=== PATIENT | female | born 1930 | race Caucasian/White ===

== ENCOUNTER 2018-06-02 15:07 | Emergency (ER) | payer MEDICARE ==
[2018-06-02 15:21] LABS: ADD MAN DIFF? NO
[2018-06-02 15:25] LABS: BASOPHIL # 0.1 10^3/ul (0.0-0.1); BASOPHILS % 0.7 % (0.0-2.0); EOSINOPHILS % 12.3 % (0.0-7.0); HEMATOCRIT 33.5 % (37.0-47.0); HEMOGLOBIN 10.4 g/dl (12.0-16.0); LYMPHOCYTES # 1.8 10^3/ul (0.8-2.9); LYMPHOCYTES % 21.7 % (15.0-51.0); MEAN CORPUSCULAR HEMOGLOBIN 27.3 pg (29.0-33.0); MEAN CORPUSCULAR VOLUME 87.9 fl (82.0-101.0); MEAN PLATELET VOLUME 9.7 fl (7.4-10.4); MONOCYTE # 0.6 10^3/ul (0.3-0.9); MONOCYTES % 6.9 % (0.0-11.0); NEUTROPHIL # 4.8 10^3/ul (1.6-7.5); NEUTROPHILS % 58.2 % (39.0-77.0); PLATELET COUNT 224 10^3/UL (140-415); RED BLOOD COUNT 3.81 10^6/ul (4.20-5.40); RED CELL DISTRIBUTION WIDTH 15.2 % (11.5-14.5)
[2018-06-02 15:25] LABS: WHITE BLOOD COUNT 8.3 10^3/ul (4.8-10.8)
[2018-06-02] MEDS: IPRATROPIUM (NEB) 0.5 MG/2.5 ML AMP NEB (15:27)
[2018-06-02] MEDS: ALBUTEROL 0.083% (NEB) 2.5 MG/3 ML AMP NEB (15:27)
[2018-06-02 15:46] LABS: ANION GAP 14 (8-16); BLOOD UREA NITROGEN 15 mg/dl (7-20); CALCIUM 9.1 mg/dl (8.4-10.2); CARBON DIOXIDE 25 mmol/L (21-31); CHLORIDE 106 mmol/L (97-110); CREATININE 0.68 mg/dl (0.44-1.00); GLUCOSE 163 mg/dl (70-220); POTASSIUM 4.4 mmol/L (3.5-5.1); SODIUM 141 mmol/L (135-144)
[2018-06-02] MEDS: METHYLPREDNISOLONE 125 MG INJ IV (15:54)
[2018-06-02 15:58] LABS: TROPONIN-I 0.013 ng/ml (0.000-0.120)
== END 2018-06-02 16:55 | disposition home or self-care (01) ==
LOC: E/R 15:07
DX: J45.901 Unspecified asthma with (acute) exacerbation (principal); R40.2142 Coma scale, eyes open, spontaneous, at arrival to emergency department; R40.2252 Coma scale, best verbal response, oriented, at arrival to emergency department; Z87.891 Personal history of nicotine dependence; Z79.82 Long term (current) use of aspirin
CPT/HCPCS: 71045; 80048; 84484; 85025; 93005; 94664; 96374; 99285-25

== ENCOUNTER 2018-07-02 19:51 | Inpatient (IN) | payer MEDICARE ==
[2018-07-02 21:04] LABS: ADD MAN DIFF? NO
[2018-07-02 21:08] LABS: WHITE BLOOD COUNT 6.5 10^3/ul (4.8-10.8)
[2018-07-02 21:08] LABS: BASOPHILS % 0.3 % (0.0-2.0); EOSINOPHILS # 0.4 10^3/ul (0.0-0.5); EOSINOPHILS % 6.2 % (0.0-7.0); HEMATOCRIT 33.2 % (37.0-47.0); HEMOGLOBIN 9.9 g/dl (12.0-16.0); LYMPHOCYTES # 1.3 10^3/ul (0.8-2.9); LYMPHOCYTES % 20.2 % (15.0-51.0); MEAN CORPUSCULAR HEMOGLOBIN 26.1 pg (29.0-33.0); MEAN CORPUSCULAR HGB CONC 29.8 g/dl (32.0-37.0); MEAN CORPUSCULAR VOLUME 87.6 fl (82.0-101.0); MEAN PLATELET VOLUME 10.2 fl (7.4-10.4); MONOCYTE # 0.8 10^3/ul (0.3-0.9); MONOCYTES % 11.6 % (0.0-11.0); NEUTROPHILS % 61.4 % (39.0-77.0); PLATELET COUNT 207 10^3/UL (140-415); RED BLOOD COUNT 3.79 10^6/ul (4.20-5.40); RED CELL DISTRIBUTION WIDTH 15.3 % (11.5-14.5)
[2018-07-02 21:23] LABS: INR 1.13; PROTIME 14.7 Sec (11.9-14.9); PT RATIO 1.1
[2018-07-02 21:24] LABS: PARTIAL THROMBOPLASTIN TIME 26.3 Sec (25.0-35.0)
[2018-07-02 21:31] LABS: LACTIC ACID 1.9 mmol/L (0.5-2.0)
[2018-07-02 21:31] LABS: ALANINE AMINOTRANSFERASE 37 IU/L (13-69); ALBUMIN 3.3 g/dl (3.3-4.9); ALBUMIN/GLOBULIN RATIO 1.22; ALKALINE PHOSPHATASE 77 IU/L (42-121); ANION GAP 10 (8-16); ASPARTATE AMINO TRANSFERASE 31 IU/L (15-46); BILIRUBIN,INDIRECT 0.1 mg/dl (0-1.1); BILIRUBIN,TOTAL 0.1 mg/dl (0.2-1.3); BLOOD UREA NITROGEN 16 mg/dl (7-20); CALCIUM 9.1 mg/dl (8.4-10.2); CARBON DIOXIDE 32 mmol/L (21-31); CHLORIDE 102 mmol/L (97-110); GLUCOSE 123 mg/dl (70-220); POTASSIUM 4.3 mmol/L (3.5-5.1); SODIUM 140 mmol/L (135-144)
[2018-07-02 21:38] LABS: B-TYPE NATRIURETIC PEPTIDE 6370 PG/ML (0-450); TROPONIN-I 0.021 ng/ml (0.000-0.120)
[2018-07-02] MEDS: SODIUM CHLORIDE 0.9% 1L BAG IV* (22:24)
[2018-07-02 22:35] LABS: LACTIC ACID 1.1 mmol/L (0.5-2.0)
[2018-07-02] MEDS: IOHEXOL 100 ML (22:54)
[2018-07-02] MEDS: SOD CHLORIDE 0.9% 100 ML (22:54)
[2018-07-02 23:46] LABS: LACTIC ACID 1.4 mmol/L (0.5-2.0)
[2018-07-03] MEDS ORDERED: ONDANSETRON 4 MG INJ IV (01:00)
[2018-07-03] MEDS ORDERED: ALBUTEROL HFA 8 GM INHALER INH (01:00)
[2018-07-03] MEDS ORDERED: DOCUSATE SODIUM 100 MG CAP PO (01:00)
[2018-07-03] MEDS ORDERED: NACL 0.9% 3 ML SYG IV (01:00)
[2018-07-03] MEDS ORDERED: NITROGLYCERIN (SL) 0.4 MG TAB SL (01:00)
[2018-07-03] MEDS ORDERED: BISACODYL (EC) 5 MG TAB PO (01:00)
[2018-07-03 01:21] LABS: CREATINE KINASE 44 IU/L (23-200)
[2018-07-03 01:34] LABS: CK INDEX 6.7; CK-MB 2.95 ng/ml (0.0-2.4); TROPONIN-I 0.023 ng/ml (0.000-0.120)
[2018-07-03] MEDS ORDERED: ALBUTEROL/IPRATROPIUM (NEB) 3 ML AMP HHN (02:30)
[2018-07-03] MEDS: FUROSEMIDE 20 MG INJ IV (02:30)
[2018-07-03 05:52] LABS: ADD MAN DIFF? NO
[2018-07-03 05:54] LABS: BASOPHILS % 0.4 % (0.0-2.0); EOSINOPHILS # 0.1 10^3/ul (0.0-0.5); EOSINOPHILS % 0.9 % (0.0-7.0); HEMATOCRIT 32.6 % (37.0-47.0); HEMOGLOBIN 9.9 g/dl (12.0-16.0); LYMPHOCYTES # 1.1 10^3/ul (0.8-2.9); MEAN CORPUSCULAR HEMOGLOBIN 26.8 pg (29.0-33.0); MEAN CORPUSCULAR HGB CONC 30.4 g/dl (32.0-37.0); MEAN CORPUSCULAR VOLUME 88.1 fl (82.0-101.0); MEAN PLATELET VOLUME 10.4 fl (7.4-10.4); MONOCYTE # 0.7 10^3/ul (0.3-0.9); MONOCYTES % 8.7 % (0.0-11.0); NEUTROPHILS % 75.5 % (39.0-77.0); PLATELET COUNT 211 10^3/UL (140-415); RED CELL DISTRIBUTION WIDTH 15.3 % (11.5-14.5)
[2018-07-03 05:54] LABS: WHITE BLOOD COUNT 7.9 10^3/ul (4.8-10.8)
[2018-07-03 06:16] LABS: INR 1.17; PROTIME 15.1 Sec (11.9-14.9); PT RATIO 1.2
[2018-07-03 06:21] LABS: CREATINE KINASE 42 IU/L (23-200)
[2018-07-03 06:34] LABS: CK INDEX 5.9; CK-MB 2.46 ng/ml (0.0-2.4); TROPONIN-I 0.031 ng/ml (0.000-0.120)
[2018-07-03] MEDS: ALBUMIN HUMAN 25% 100 ML IV ×2 (06:58→08:03)
[2018-07-03] MEDS: predniSONE 20 MG TAB PO (06:59)
[2018-07-03 07:09] LABS: HEMOGLOBIN A1C 6.7 % (0-5.9)
[2018-07-03 07:11] LABS: ALANINE AMINOTRANSFERASE 46 IU/L (13-69); ALBUMIN 3.2 g/dl (3.3-4.9); ALBUMIN/GLOBULIN RATIO 1.18; ALKALINE PHOSPHATASE 74 IU/L (42-121); ANION GAP 13 (8-16); ASPARTATE AMINO TRANSFERASE 42 IU/L (15-46); BILIRUBIN,INDIRECT 0.3 mg/dl (0-1.1); BILIRUBIN,TOTAL 0.3 mg/dl (0.2-1.3); BLOOD UREA NITROGEN 18 mg/dl (7-20); CALCIUM 8.4 mg/dl (8.4-10.2); CARBON DIOXIDE 26 mmol/L (21-31); CHLORIDE 104 mmol/L (97-110); CHOL/HDL RATIO 2.7 RATIO; CHOLESTEROL 89 mg/dl (100-200); CREATININE 0.89 mg/dl (0.44-1.00); GLUCOSE 127 mg/dl (70-220); HDL CHOLESTEROL 32 mg/dl (33-92); LDL CHOLESTEROL,CALCULATED 41 mg/dl; POTASSIUM 4.1 mmol/L (3.5-5.1); SODIUM 139 mmol/L (135-144); TOTAL PROTEIN 5.9 g/dl (6.1-8.1); TRIGLYCERIDES 80 mg/dl (0-149)
[2018-07-03] MEDS: PANTOPRAZOLE (EC) 40 MG TAB PO ×2 (07:44→18:11)
[2018-07-03] MEDS: ALBUTEROL/IPRATROPIUM (NEB) 3 ML AMP HHN ×4 (08:30→20:37)
[2018-07-03] MEDS: DONEPEZIL 5 MG TAB PO (08:51)
[2018-07-03] MEDS: ANASTROZOLE 1 MG TAB PO (08:51)
[2018-07-03] MEDS: QUETIAPINE 25 MG TAB PO ×2 (08:51→20:21)
[2018-07-03] MEDS: OXYBUTYNIN 5 MG TAB PO (08:51)
[2018-07-03] MEDS: DOCUSATE SODIUM 100 MG CAP PO ×2 (08:59→20:21)
[2018-07-03] MEDS: ASPIRIN (EC) 81 MG TAB PO (09:00)
[2018-07-03] MEDS ORDERED: DONEPEZIL 5 MG PO (09:00)
[2018-07-03] MEDS: MEMANTINE 10 MG TAB PO (09:00)
[2018-07-03] MEDS: morphine 2 MG INJ IV (10:31)
[2018-07-03] MEDS: ALPRAZOLAM 0.5 MG TAB PO (17:31)
[2018-07-03] MEDS: PAROXETINE 10 MG TAB PO (20:21)
[2018-07-03] MEDS: MONTELUKAST 10 MG TAB PO (20:21)
[2018-07-04] MEDS: ALBUTEROL/IPRATROPIUM (NEB) 3 ML AMP HHN ×6 (00:30→20:26)
[2018-07-04] MEDS: ALPRAZOLAM 0.25 MG TAB PO ×2 (01:22→18:09)
[2018-07-04] MEDS ORDERED: VANCOMYCIN IV PER PHARMACY XX (05:00)
[2018-07-04 05:35] LABS: ADD MAN DIFF? NO
[2018-07-04 05:36] LABS: WHITE BLOOD COUNT 7.1 10^3/ul (4.8-10.8)
[2018-07-04 05:36] LABS: BASOPHILS % 0.1 % (0.0-2.0); EOSINOPHILS % 0.4 % (0.0-7.0); HEMATOCRIT 30.7 % (37.0-47.0); HEMOGLOBIN 9.4 g/dl (12.0-16.0); LYMPHOCYTES # 1.5 10^3/ul (0.8-2.9); LYMPHOCYTES % 20.4 % (15.0-51.0); MEAN CORPUSCULAR HEMOGLOBIN 26.3 pg (29.0-33.0); MEAN CORPUSCULAR HGB CONC 30.6 g/dl (32.0-37.0); MEAN CORPUSCULAR VOLUME 85.8 fl (82.0-101.0); MEAN PLATELET VOLUME 10.5 fl (7.4-10.4); MONOCYTE # 0.9 10^3/ul (0.3-0.9); NEUTROPHIL # 4.7 10^3/ul (1.6-7.5); NEUTROPHILS % 66.7 % (39.0-77.0); PLATELET COUNT 206 10^3/UL (140-415); RED BLOOD COUNT 3.58 10^6/ul (4.20-5.40); RED CELL DISTRIBUTION WIDTH 15.2 % (11.5-14.5)
[2018-07-04 05:56] LABS: PHOSPHORUS 3.7 mg/dl (2.5-4.9)
[2018-07-04 05:56] LABS: MAGNESIUM 2.4 mg/dl (1.7-2.5)
[2018-07-04] MEDS: PANTOPRAZOLE (EC) 40 MG TAB PO ×2 (05:58→18:10)
[2018-07-04 06:01] LABS: PT RATIO 1.3
[2018-07-04 06:08] LABS: B-TYPE NATRIURETIC PEPTIDE 7760 PG/ML (0-450); TROPONIN-I 0.019 ng/ml (0.000-0.120)
[2018-07-04 06:37] LABS: ALBUMIN 3.6 g/dl (3.3-4.9); ALBUMIN/GLOBULIN RATIO 1.71; ALKALINE PHOSPHATASE 65 IU/L (42-121); ANION GAP 14 (8-16); ASPARTATE AMINO TRANSFERASE 46 IU/L (15-46); BILIRUBIN,INDIRECT 0.4 mg/dl (0-1.1); BILIRUBIN,TOTAL 0.4 mg/dl (0.2-1.3); BLOOD UREA NITROGEN 23 mg/dl (7-20); CARBON DIOXIDE 26 mmol/L (21-31); CHLORIDE 104 mmol/L (97-110); CREATININE 0.82 mg/dl (0.44-1.00); GLUCOSE 135 mg/dl (70-220); POTASSIUM 4.7 mmol/L (3.5-5.1); SODIUM 139 mmol/L (135-144); TOTAL PROTEIN 5.7 g/dl (6.1-8.1)
[2018-07-04] MEDS: VANCOMYCIN 1.25 GM in SOD CHLORIDE 0.9% 250 ML IVPB (06:45)
[2018-07-04 08:00] LABS: ALANINE AMINOTRANSFERASE 52 IU/L (13-69)
[2018-07-04] MEDS ORDERED: ARTIFICIAL TEARS 15 ML OPH BOTH EYES (08:00)
[2018-07-04] MEDS: OXYBUTYNIN 5 MG TAB PO (08:52)
[2018-07-04] MEDS: DOCUSATE SODIUM 100 MG CAP PO ×2 (08:52→20:59)
[2018-07-04] MEDS: ANASTROZOLE 1 MG TAB PO (08:53)
[2018-07-04] MEDS: MEMANTINE 10 MG TAB PO (08:53)
[2018-07-04] MEDS: DONEPEZIL 5 MG TAB PO (08:54)
[2018-07-04] MEDS: ASPIRIN (EC) 81 MG TAB PO (08:54)
[2018-07-04] MEDS: QUETIAPINE 25 MG TAB PO ×2 (08:54→20:59)
[2018-07-04] MEDS: predniSONE 20 MG TAB PO (08:55)
[2018-07-04 09:48] LABS: ADD UMIC YES; UR ASCORBIC ACID 40 mg/dL (NEGATIVE); UR BILIRUBIN (Dip) NEGATIVE (NEGATIVE); UR BLOOD (Dip) NEGATIVE (NEGATIVE); UR CLARITY CLEAR (CLEAR); UR COLOR YELLOW (YELLOW); UR GLUCOSE (Dip) NEGATIVE (NEGATIVE); UR KETONES (Dip) NEGATIVE (NEGATIVE); UR LEUKOCYTE ESTERASE (Dip) NEGATIVE Leu/ul (NEGATIVE); UR MUCUS FEW /HPF (NONE SEEN); UR NITRITE (Dip) NEGATIVE (NEGATIVE); UR RBC 1 /HPF (0-5); UR SPECIFIC GRAVITY (Dip) 1.055 (1.003-1.030); UR TOTAL PROTEIN (Dip) 1+ mg/dl (NEGATIVE); UR UROBILINOGEN (Dip) 1+ mg/dL (NEGATIVE); UR WBC 1 /HPF (0-5)
[2018-07-04 09:59] LABS: INR 1.29; PROTIME 16.3 Sec (11.9-14.9)
[2018-07-04] MEDS: LORAZEPAM 0.5 MG TAB PO (12:48)
[2018-07-04] MEDS: BISACODYL (EC) 5 MG TAB PO (13:26)
[2018-07-04] MEDS: POLYETHYLENE GLYCOL 17 GM PACKET PO (20:59)
[2018-07-04] MEDS: PAROXETINE 10 MG TAB PO (20:59)
[2018-07-04] MEDS: MONTELUKAST 10 MG TAB PO (20:59)
[2018-07-04] MEDS: METOPROLOL 25 MG TAB PO (21:01)
[2018-07-04] MEDS: HEPARIN 5,000 UNIT/0.5 ML VIAL SC (21:25)
[2018-07-05] MEDS: ALBUTEROL/IPRATROPIUM (NEB) 3 ML AMP HHN ×6 (01:41→21:45)
[2018-07-05 05:43] LABS: ADD MAN DIFF? NO
[2018-07-05] MEDS: PANTOPRAZOLE (EC) 40 MG TAB PO ×2 (05:45→18:45)
[2018-07-05] MEDS: VANCOMYCIN 1 GM 250 ML IVPB (05:46)
[2018-07-05 05:58] LABS: BASOPHILS % 0.2 % (0.0-2.0); EOSINOPHILS % 0.4 % (0.0-7.0); HEMOGLOBIN 9.8 g/dl (12.0-16.0); LYMPHOCYTES # 1.7 10^3/ul (0.8-2.9); LYMPHOCYTES % 18.1 % (15.0-51.0); MEAN CORPUSCULAR HEMOGLOBIN 26.2 pg (29.0-33.0); MEAN CORPUSCULAR HGB CONC 30.6 g/dl (32.0-37.0); MEAN CORPUSCULAR VOLUME 85.6 fl (82.0-101.0); MEAN PLATELET VOLUME 10.7 fl (7.4-10.4); MONOCYTES % 10.1 % (0.0-11.0); NEUTROPHIL # 6.8 10^3/ul (1.6-7.5); NEUTROPHILS % 70.7 % (39.0-77.0); NUCLEATED RED BLOOD CELLS% 0.2 /100WBC (0.0-0.0); PLATELET COUNT 217 10^3/UL (140-415); RED BLOOD COUNT 3.74 10^6/ul (4.20-5.40); RED CELL DISTRIBUTION WIDTH 15.3 % (11.5-14.5)
[2018-07-05 05:58] LABS: WHITE BLOOD COUNT 9.6 10^3/ul (4.8-10.8)
[2018-07-05 06:07] LABS: PT RATIO 1.2
[2018-07-05 06:20] LABS: INR 1.24; PROTIME 15.8 Sec (11.9-14.9)
[2018-07-05 06:49] LABS: PHOSPHORUS 3.6 mg/dl (2.5-4.9)
[2018-07-05 06:49] LABS: MAGNESIUM 2.5 mg/dl (1.7-2.5)
[2018-07-05 07:30] LABS: ALANINE AMINOTRANSFERASE 81 IU/L (13-69); ALBUMIN 3.3 g/dl (3.3-4.9); ALBUMIN/GLOBULIN RATIO 1.37; ALKALINE PHOSPHATASE 80 IU/L (42-121); ANION GAP 17 (8-16); ASPARTATE AMINO TRANSFERASE 92 IU/L (15-46); BILIRUBIN,INDIRECT 0.2 mg/dl (0-1.1); BILIRUBIN,TOTAL 0.2 mg/dl (0.2-1.3); BLOOD UREA NITROGEN 29 mg/dl (7-20); CALCIUM 8.9 mg/dl (8.4-10.2); CARBON DIOXIDE 25 mmol/L (21-31); CHLORIDE 104 mmol/L (97-110); CREATININE 0.88 mg/dl (0.44-1.00); GLUCOSE 153 mg/dl (70-220); POTASSIUM 4.5 mmol/L (3.5-5.1); SODIUM 141 mmol/L (135-144); TOTAL PROTEIN 5.7 g/dl (6.1-8.1)
[2018-07-05] MEDS: ASPIRIN (EC) 81 MG TAB PO (09:26)
[2018-07-05] MEDS: OXYBUTYNIN 5 MG TAB PO (09:27)
[2018-07-05] MEDS: MEMANTINE 10 MG TAB PO (09:27)
[2018-07-05] MEDS: DOCUSATE SODIUM 100 MG CAP PO ×2 (09:27→21:01)
[2018-07-05] MEDS: LISINOPRIL 5 MG TAB PO (09:29)
[2018-07-05] MEDS: METOPROLOL 25 MG TAB PO ×2 (09:30→21:02)
[2018-07-05] MEDS: predniSONE 20 MG TAB PO (09:30)
[2018-07-05] MEDS: QUETIAPINE 25 MG TAB PO ×2 (09:30→21:01)
[2018-07-05] MEDS: BISACODYL (EC) 5 MG TAB PO (09:30)
[2018-07-05] MEDS: DONEPEZIL 5 MG TAB PO (09:30)
[2018-07-05] MEDS: POLYETHYLENE GLYCOL 17 GM PACKET PO ×2 (09:30→21:00)
[2018-07-05] MEDS: ANASTROZOLE 1 MG TAB PO (09:31)
[2018-07-05] MEDS: HEPARIN 5,000 UNIT/0.5 ML VIAL SC ×2 (09:31→21:04)
[2018-07-05] MEDS ORDERED: morphine LIQ (10 MG/5 ML) CUP PO (15:30)
[2018-07-05] MEDS: PAROXETINE 10 MG TAB PO (21:01)
[2018-07-05] MEDS: MONTELUKAST 10 MG TAB PO (21:01)
[2018-07-06] MEDS: ALBUTEROL/IPRATROPIUM (NEB) 3 ML AMP HHN ×6 (01:11→21:12)
[2018-07-06] MEDS: ACETAMINOPHEN 325 MG TAB PO (01:29)
[2018-07-06] MEDS: ALPRAZOLAM 0.25 MG TAB PO ×2 (01:29→17:34)
[2018-07-06] MEDS: VANCOMYCIN 1 GM 250 ML IVPB (05:27)
[2018-07-06 05:43] LABS: ADD MAN DIFF? NO
[2018-07-06 05:52] LABS: BASOPHILS % 0.1 % (0.0-2.0); HEMATOCRIT 30.5 % (37.0-47.0); HEMOGLOBIN 9.4 g/dl (12.0-16.0); LYMPHOCYTES # 0.9 10^3/ul (0.8-2.9); LYMPHOCYTES % 8.8 % (15.0-51.0); MEAN CORPUSCULAR HEMOGLOBIN 26.2 pg (29.0-33.0); MEAN CORPUSCULAR HGB CONC 30.8 g/dl (32.0-37.0); MEAN PLATELET VOLUME 11.1 fl (7.4-10.4); MONOCYTE # 0.7 10^3/ul (0.3-0.9); MONOCYTES % 6.5 % (0.0-11.0); NEUTROPHIL # 8.4 10^3/ul (1.6-7.5); NEUTROPHILS % 84.1 % (39.0-77.0); NUCLEATED RED BLOOD CELLS% 0.2 /100WBC (0.0-0.0); PLATELET COUNT 213 10^3/UL (140-415); RED BLOOD COUNT 3.59 10^6/ul (4.20-5.40); RED CELL DISTRIBUTION WIDTH 15.2 % (11.5-14.5)
[2018-07-06 06:13] LABS: ANION GAP 12 (8-16); BLOOD UREA NITROGEN 32 mg/dl (7-20); CALCIUM 8.7 mg/dl (8.4-10.2); CARBON DIOXIDE 27 mmol/L (21-31); CHLORIDE 105 mmol/L (97-110); CREATININE 0.74 mg/dl (0.44-1.00); GLUCOSE 163 mg/dl (70-220); POTASSIUM 4.2 mmol/L (3.5-5.1); SODIUM 140 mmol/L (135-144)
[2018-07-06 06:17] LABS: INR 1.28; PROTIME 16.2 Sec (11.9-14.9); PT RATIO 1.3
[2018-07-06] MEDS: PANTOPRAZOLE (EC) 40 MG TAB PO ×2 (06:49→17:30)
[2018-07-06] MEDS: predniSONE 20 MG TAB PO (09:00)
[2018-07-06] MEDS: DONEPEZIL 5 MG TAB PO (09:00)
[2018-07-06] MEDS: DOCUSATE SODIUM 100 MG CAP PO ×2 (09:00→21:00)
[2018-07-06] MEDS: POLYETHYLENE GLYCOL 17 GM PACKET PO ×2 (09:00→21:00)
[2018-07-06] MEDS: OXYBUTYNIN 5 MG TAB PO (09:00)
[2018-07-06] MEDS: ASPIRIN (EC) 81 MG TAB PO (09:03)
[2018-07-06] MEDS: METOPROLOL 25 MG TAB PO ×2 (09:03→21:23)
[2018-07-06] MEDS: QUETIAPINE 25 MG TAB PO ×2 (09:03→21:19)
[2018-07-06] MEDS: LISINOPRIL 5 MG TAB PO (09:03)
[2018-07-06] MEDS: MEMANTINE 10 MG TAB PO (09:03)
[2018-07-06] MEDS: ANASTROZOLE 1 MG TAB PO (09:11)
[2018-07-06] MEDS: HEPARIN 5,000 UNIT/0.5 ML VIAL SC ×2 (09:11→21:19)
[2018-07-06] MEDS: FUROSEMIDE 40 MG INJ IV ×2 (11:41→17:31)
[2018-07-06 13:07] LABS: AADO2 Arterial 65.7 mmHg (7.0-24.0); Allen Test ACCEPTAB; Arterial Base Excess -0.5 mmol/L (-3.0-3); Arterial Blood Gas Oxygen Sat 95.1 mmHG (95.0-100.0); Arterial COHb 0 % (0.0-3.0); Arterial Fraction of Oxyhgb 94.8 % (93.0-99.0); Arterial HCO3 24.4 mmol/L (22.0-26.0); Arterial MetHb 0.3 % (0.0-1.5); Arterial Total Hemglobin 11.1 g/dl (12.0-18.0); Arterial pCO2 40.9 mmhg (35-45); MODE NASAL CANNULA; Site Right Radial
[2018-07-06] MEDS: BUDESONIDE (NEB) 0.25 MG/2 ML AMP HHN (20:00)
[2018-07-06] MEDS: PAROXETINE 10 MG TAB PO (21:19)
[2018-07-06] MEDS: MONTELUKAST 10 MG TAB PO (21:19)
[2018-07-07] MEDS: ALBUTEROL/IPRATROPIUM (NEB) 3 ML AMP HHN ×6 (00:55→20:37)
[2018-07-07 05:50] LABS: ADD MAN DIFF? NO
[2018-07-07 05:56] LABS: BASOPHILS % 0.2 % (0.0-2.0); EOSINOPHILS # 0.1 10^3/ul (0.0-0.5); EOSINOPHILS % 0.5 % (0.0-7.0); HEMATOCRIT 30.4 % (37.0-47.0); HEMOGLOBIN 9.2 g/dl (12.0-16.0); LYMPHOCYTES # 2.1 10^3/ul (0.8-2.9); LYMPHOCYTES % 18.6 % (15.0-51.0); MEAN CORPUSCULAR HEMOGLOBIN 25.8 pg (29.0-33.0); MEAN CORPUSCULAR HGB CONC 30.3 g/dl (32.0-37.0); MEAN CORPUSCULAR VOLUME 85.2 fl (82.0-101.0); MONOCYTES % 8.9 % (0.0-11.0); NEUTROPHIL # 7.9 10^3/ul (1.6-7.5); NEUTROPHILS % 71.3 % (39.0-77.0); NUCLEATED RED BLOOD CELLS # 0.1 10^3/ul (0.0-0.0); NUCLEATED RED BLOOD CELLS% 0.5 /100WBC (0.0-0.0); PLATELET COUNT 209 10^3/UL (140-415); RED BLOOD COUNT 3.57 10^6/ul (4.20-5.40); RED CELL DISTRIBUTION WIDTH 15.4 % (11.5-14.5)
[2018-07-07] MEDS: FUROSEMIDE 40 MG INJ IV ×3 (06:00→18:14)
[2018-07-07 06:28] LABS: ANION GAP 11 (8-16); BLOOD UREA NITROGEN 30 mg/dl (7-20); CALCIUM 8.9 mg/dl (8.4-10.2); CARBON DIOXIDE 29 mmol/L (21-31); CHLORIDE 104 mmol/L (97-110); CREATININE 0.81 mg/dl (0.44-1.00); GLUCOSE 105 mg/dl (70-220); POTASSIUM 4.1 mmol/L (3.5-5.1); SODIUM 140 mmol/L (135-144)
[2018-07-07] MEDS: PANTOPRAZOLE (EC) 40 MG TAB PO ×2 (06:31→18:13)
[2018-07-07 06:34] LABS: ALANINE AMINOTRANSFERASE 120 IU/L (13-69); ALBUMIN 2.8 g/dl (3.3-4.9); ALKALINE PHOSPHATASE 64 IU/L (42-121); ASPARTATE AMINO TRANSFERASE 102 IU/L (15-46); BILIRUBIN,INDIRECT 0.4 mg/dl (0-1.1); BILIRUBIN,TOTAL 0.4 mg/dl (0.2-1.3)
[2018-07-07] MEDS: BUDESONIDE (NEB) 0.25 MG/2 ML AMP HHN ×2 (08:55→20:37)
[2018-07-07] MEDS: METOPROLOL 25 MG TAB PO ×2 (09:00→21:44)
[2018-07-07] MEDS: POLYETHYLENE GLYCOL 17 GM PACKET PO ×2 (09:00→21:16)
[2018-07-07] MEDS: ANASTROZOLE 1 MG TAB PO (09:42)
[2018-07-07] MEDS: predniSONE 20 MG TAB PO (09:42)
[2018-07-07] MEDS: OXYBUTYNIN 5 MG TAB PO (09:42)
[2018-07-07] MEDS: QUETIAPINE 25 MG TAB PO ×2 (09:42→21:17)
[2018-07-07] MEDS: DOCUSATE SODIUM 100 MG CAP PO ×2 (09:44→21:17)
[2018-07-07] MEDS: MEMANTINE 10 MG TAB PO (09:44)
[2018-07-07] MEDS: ASPIRIN (EC) 81 MG TAB PO (09:44)
[2018-07-07] MEDS: DONEPEZIL 5 MG TAB PO (09:44)
[2018-07-07] MEDS: HEPARIN 5,000 UNIT/0.5 ML VIAL SC ×2 (09:45→21:17)
[2018-07-07] MEDS: LISINOPRIL 5 MG TAB PO (10:56)
[2018-07-07] MEDS: MONTELUKAST 10 MG TAB PO (21:17)
[2018-07-07] MEDS: PAROXETINE 10 MG TAB PO (21:17)
[2018-07-08] MEDS: ALBUTEROL/IPRATROPIUM (NEB) 3 ML AMP HHN ×6 (00:09→21:32)
[2018-07-08 05:38] LABS: ADD MAN DIFF? NO
[2018-07-08 05:45] LABS: WHITE BLOOD COUNT 9.4 10^3/ul (4.8-10.8)
[2018-07-08 05:45] LABS: BASOPHILS % 0.1 % (0.0-2.0); HEMATOCRIT 30.9 % (37.0-47.0); HEMOGLOBIN 9.4 g/dl (12.0-16.0); LYMPHOCYTES # 0.9 10^3/ul (0.8-2.9); LYMPHOCYTES % 9.2 % (15.0-51.0); MEAN CORPUSCULAR HEMOGLOBIN 25.9 pg (29.0-33.0); MEAN CORPUSCULAR HGB CONC 30.4 g/dl (32.0-37.0); MEAN CORPUSCULAR VOLUME 85.1 fl (82.0-101.0); MEAN PLATELET VOLUME 10.8 fl (7.4-10.4); MONOCYTE # 0.6 10^3/ul (0.3-0.9); NEUTROPHIL # 7.9 10^3/ul (1.6-7.5); NEUTROPHILS % 84.3 % (39.0-77.0); NUCLEATED RED BLOOD CELLS% 0.4 /100WBC (0.0-0.0); PLATELET COUNT 233 10^3/UL (140-415); RED BLOOD COUNT 3.63 10^6/ul (4.20-5.40); RED CELL DISTRIBUTION WIDTH 15.2 % (11.5-14.5)
[2018-07-08 06:14] LABS: ANION GAP 11 (8-16); BLOOD UREA NITROGEN 29 mg/dl (7-20); CALCIUM 8.5 mg/dl (8.4-10.2); CARBON DIOXIDE 31 mmol/L (21-31); CHLORIDE 104 mmol/L (97-110); CREATININE 0.76 mg/dl (0.44-1.00); GLUCOSE 147 mg/dl (70-220); POTASSIUM 3.8 mmol/L (3.5-5.1); SODIUM 142 mmol/L (135-144)
[2018-07-08 06:19] LABS: B-TYPE NATRIURETIC PEPTIDE 8490 PG/ML (0-450)
[2018-07-08] MEDS: BUDESONIDE (NEB) 0.25 MG/2 ML AMP HHN ×2 (08:15→21:32)
[2018-07-08] MEDS: ASPIRIN (EC) 81 MG TAB PO (08:35)
[2018-07-08] MEDS: QUETIAPINE 25 MG TAB PO ×2 (08:35→20:18)
[2018-07-08] MEDS: POLYETHYLENE GLYCOL 17 GM PACKET PO ×2 (08:36→20:17)
[2018-07-08] MEDS: METOPROLOL 25 MG TAB PO ×2 (08:36→20:19)
[2018-07-08] MEDS: DOCUSATE SODIUM 100 MG CAP PO ×2 (08:36→20:17)
[2018-07-08] MEDS: DONEPEZIL 5 MG TAB PO (08:36)
[2018-07-08] MEDS: OXYBUTYNIN 5 MG TAB PO (08:36)
[2018-07-08] MEDS: MEMANTINE 10 MG TAB PO (08:36)
[2018-07-08] MEDS: LISINOPRIL 5 MG TAB PO (08:36)
[2018-07-08] MEDS: PANTOPRAZOLE (EC) 40 MG TAB PO ×2 (08:36→17:17)
[2018-07-08] MEDS: ANASTROZOLE 1 MG TAB PO (08:37)
[2018-07-08] MEDS: HEPARIN 5,000 UNIT/0.5 ML VIAL SC ×2 (08:38→20:20)
[2018-07-08] MEDS ORDERED: FUROSEMIDE 40 MG INJ IV (13:00)
[2018-07-08] MEDS: FUROSEMIDE 40 MG TAB PO ×2 (13:28→20:18)
[2018-07-08] MEDS: LORAZEPAM 0.5 MG TAB PO (16:20)
[2018-07-08] MEDS: PAROXETINE 10 MG TAB PO (20:17)
[2018-07-08] MEDS: MONTELUKAST 10 MG TAB PO (20:18)
[2018-07-09] MEDS: ALBUTEROL/IPRATROPIUM (NEB) 3 ML AMP HHN ×6 (01:51→21:16)
[2018-07-09 05:12] LABS: ADD MAN DIFF? NO
[2018-07-09 05:16] LABS: WHITE BLOOD COUNT 8.2 10^3/ul (4.8-10.8)
[2018-07-09 05:16] LABS: BASOPHILS % 0.2 % (0.0-2.0); EOSINOPHILS # 0.4 10^3/ul (0.0-0.5); HEMATOCRIT 30.8 % (37.0-47.0); HEMOGLOBIN 9.4 g/dl (12.0-16.0); LYMPHOCYTES # 2.1 10^3/ul (0.8-2.9); LYMPHOCYTES % 25.1 % (15.0-51.0); MEAN CORPUSCULAR HEMOGLOBIN 25.8 pg (29.0-33.0); MEAN CORPUSCULAR HGB CONC 30.5 g/dl (32.0-37.0); MEAN CORPUSCULAR VOLUME 84.6 fl (82.0-101.0); MEAN PLATELET VOLUME 10.4 fl (7.4-10.4); MONOCYTE # 0.6 10^3/ul (0.3-0.9); MONOCYTES % 7.7 % (0.0-11.0); NEUTROPHIL # 5.1 10^3/ul (1.6-7.5); NEUTROPHILS % 61.4 % (39.0-77.0); NUCLEATED RED BLOOD CELLS% 0.2 /100WBC (0.0-0.0); PLATELET COUNT 249 10^3/UL (140-415); RED BLOOD COUNT 3.64 10^6/ul (4.20-5.40); RED CELL DISTRIBUTION WIDTH 15.1 % (11.5-14.5)
[2018-07-09 05:57] LABS: ANION GAP 10 (8-16); BLOOD UREA NITROGEN 24 mg/dl (7-20); CALCIUM 8.5 mg/dl (8.4-10.2); CARBON DIOXIDE 37 mmol/L (21-31); CHLORIDE 98 mmol/L (97-110); CREATININE 0.72 mg/dl (0.44-1.00); GLUCOSE 78 mg/dl (70-220); POTASSIUM 3.1 mmol/L (3.5-5.1); SODIUM 142 mmol/L (135-144)
[2018-07-09] MEDS: PANTOPRAZOLE (EC) 40 MG TAB PO ×2 (06:30→17:39)
[2018-07-09] MEDS: POTASSIUM CHLORIDE (SR) 20 MEQ TAB PO ×2 (06:53→09:07)
[2018-07-09] MEDS: BUDESONIDE (NEB) 0.25 MG/2 ML AMP HHN ×2 (08:18→21:16)
[2018-07-09] MEDS: DOCUSATE SODIUM 100 MG CAP PO ×2 (08:46→20:32)
[2018-07-09] MEDS: FUROSEMIDE 40 MG TAB PO ×3 (08:49→20:32)
[2018-07-09] MEDS: MEMANTINE 10 MG TAB PO (08:50)
[2018-07-09] MEDS: DONEPEZIL 5 MG TAB PO (08:50)
[2018-07-09] MEDS: OXYBUTYNIN 5 MG TAB PO (08:50)
[2018-07-09] MEDS: ASPIRIN (EC) 81 MG TAB PO (08:50)
[2018-07-09] MEDS: QUETIAPINE 25 MG TAB PO ×2 (08:50→20:32)
[2018-07-09] MEDS: HEPARIN 5,000 UNIT/0.5 ML VIAL SC ×2 (08:51→20:36)
[2018-07-09] MEDS: LISINOPRIL 5 MG TAB PO (08:51)
[2018-07-09] MEDS ORDERED: POTASSIUM CHLORIDE 20 MEQ POWDER FOR ORAL SOLN PO (09:00)
[2018-07-09] MEDS: METOPROLOL 25 MG TAB PO ×2 (09:05→20:37)
[2018-07-09] MEDS: POLYETHYLENE GLYCOL 17 GM PACKET PO ×2 (09:06→20:33)
[2018-07-09] MEDS: ANASTROZOLE 1 MG TAB PO (15:52)
[2018-07-09] MEDS: PAROXETINE 10 MG TAB PO (20:32)
[2018-07-09] MEDS: MONTELUKAST 10 MG TAB PO (20:32)
[2018-07-10] MEDS: ALBUTEROL/IPRATROPIUM (NEB) 3 ML AMP HHN ×4 (01:24→13:00)
[2018-07-10 05:14] LABS: ADD MAN DIFF? NO
[2018-07-10 05:17] LABS: BASOPHILS % 0.3 % (0.0-2.0); EOSINOPHILS # 0.5 10^3/ul (0.0-0.5); EOSINOPHILS % 5.3 % (0.0-7.0); HEMATOCRIT 33.8 % (37.0-47.0); HEMOGLOBIN 10.5 g/dl (12.0-16.0); LYMPHOCYTES # 1.9 10^3/ul (0.8-2.9); LYMPHOCYTES % 18.9 % (15.0-51.0); MEAN CORPUSCULAR HEMOGLOBIN 25.7 pg (29.0-33.0); MEAN CORPUSCULAR HGB CONC 31.1 g/dl (32.0-37.0); MEAN CORPUSCULAR VOLUME 82.6 fl (82.0-101.0); MEAN PLATELET VOLUME 10.6 fl (7.4-10.4); MONOCYTE # 0.9 10^3/ul (0.3-0.9); MONOCYTES % 8.8 % (0.0-11.0); NEUTROPHIL # 6.5 10^3/ul (1.6-7.5); NEUTROPHILS % 66.2 % (39.0-77.0); NUCLEATED RED BLOOD CELLS% 0.2 /100WBC (0.0-0.0); PLATELET COUNT 287 10^3/UL (140-415); RED BLOOD COUNT 4.09 10^6/ul (4.20-5.40); RED CELL DISTRIBUTION WIDTH 15.3 % (11.5-14.5)
[2018-07-10 05:17] LABS: WHITE BLOOD COUNT 9.9 10^3/ul (4.8-10.8)
[2018-07-10 05:49] LABS: ANION GAP 9 (8-16); BLOOD UREA NITROGEN 20 mg/dl (7-20); CARBON DIOXIDE 38 mmol/L (21-31); CHLORIDE 96 mmol/L (97-110); CREATININE 0.66 mg/dl (0.44-1.00); GLUCOSE 92 mg/dl (70-220); POTASSIUM 3.4 mmol/L (3.5-5.1); SODIUM 140 mmol/L (135-144)
[2018-07-10] MEDS: FUROSEMIDE 40 MG TAB PO ×2 (08:10→14:30)
[2018-07-10] MEDS: QUETIAPINE 25 MG TAB PO (08:10)
[2018-07-10] MEDS: ASPIRIN (EC) 81 MG TAB PO (08:10)
[2018-07-10] MEDS: MEMANTINE 10 MG TAB PO (08:10)
[2018-07-10] MEDS: PANTOPRAZOLE (EC) 40 MG TAB PO (08:11)
[2018-07-10] MEDS: DONEPEZIL 5 MG TAB PO (08:11)
[2018-07-10] MEDS: DOCUSATE SODIUM 100 MG CAP PO (08:11)
[2018-07-10] MEDS: LISINOPRIL 5 MG TAB PO (08:11)
[2018-07-10] MEDS: METOPROLOL 25 MG TAB PO (08:12)
[2018-07-10] MEDS: ANASTROZOLE 1 MG TAB PO (08:13)
[2018-07-10] MEDS: HEPARIN 5,000 UNIT/0.5 ML VIAL SC (08:14)
[2018-07-10] MEDS: OXYBUTYNIN 5 MG TAB PO (08:15)
[2018-07-10] MEDS: BUDESONIDE (NEB) 0.25 MG/2 ML AMP HHN (08:21)
[2018-07-10] MEDS: POLYETHYLENE GLYCOL 17 GM PACKET PO (09:00)
[2018-07-10] MEDS: POTASSIUM CHLORIDE (SR) 20 MEQ TAB PO (11:23)
== END 2018-07-10 16:35 | DRG 190 ==
LOC: PP2 07-06 20:43 → 6WM 07-03 00:19 → E/R 19:51
DX: J44.1 Chronic obstructive pulmonary disease with (acute) exacerbation (principal); J96.01 Acute respiratory failure with hypoxia; I50.23 Acute on chronic systolic (congestive) heart failure; C34.12 Malignant neoplasm of upper lobe, left bronchus or lung; I42.9 Cardiomyopathy, unspecified; I11.0 Hypertensive heart disease with heart failure; R07.89 Other chest pain; F03.90 Unspecified dementia, unspecified severity, without behavioral disturbance, psychotic disturbance, mood disturbance, and anxiety; D64.9 Anemia, unspecified; C50.919 Malignant neoplasm of unspecified site of unspecified female breast; E11.9 Type 2 diabetes mellitus without complications; I95.9 Hypotension, unspecified; K59.00 Constipation, unspecified; R33.9 Retention of urine, unspecified; R13.10 Dysphagia, unspecified; J45.909 Unspecified asthma, uncomplicated; I34.0 Nonrheumatic mitral (valve) insufficiency; R41.3 Other amnesia; Z86.73 Personal history of transient ischemic attack (TIA), and cerebral infarction without residual deficits
CPT/HCPCS: 36415; 36600; 71045; 71275; 74018; 76705; 80048; 80053; 80061; 80076; 81001; 82550; 82553; 82803; 83036; 83605; 83735; 83880; 84100; 84443; 84484; 85025; 85610; 85730; 87040; 93005; 93306; 94640; 94664; 97116; 97163; 97530; 99285-25

== ENCOUNTER 2018-10-29 16:38 | Inpatient (IN) | payer MEDICARE ==
[2018-10-29 17:42] LABS: ADD MAN DIFF? NO
[2018-10-29] MEDS: SODIUM CHLORIDE 0.9% 1L BAG IV* (17:42)
[2018-10-29 17:46] LABS: WHITE BLOOD COUNT 11.8 10^3/ul (4.8-10.8)
[2018-10-29 17:46] LABS: BASOPHILS % 0.3 % (0.0-2.0); EOSINOPHILS % 0.2 % (0.0-7.0); HEMATOCRIT 33.7 % (37.0-47.0); HEMOGLOBIN 10.9 g/dl (12.0-16.0); LYMPHOCYTES # 1.3 10^3/ul (0.8-2.9); LYMPHOCYTES % 11.1 % (15.0-51.0); MEAN CORPUSCULAR HGB CONC 32.3 g/dl (32.0-37.0); MEAN CORPUSCULAR VOLUME 83.4 fl (82.0-101.0); MEAN PLATELET VOLUME 10.3 fl (7.4-10.4); MONOCYTE # 1.1 10^3/ul (0.3-0.9); NEUTROPHIL # 9.3 10^3/ul (1.6-7.5); NEUTROPHILS % 78.5 % (39.0-77.0); PLATELET COUNT 319 10^3/UL (140-415); RED BLOOD COUNT 4.04 10^6/ul (4.20-5.40); RED CELL DISTRIBUTION WIDTH 15.7 % (11.5-14.5)
[2018-10-29 18:04] LABS: PROTIME 13.3 Sec (11.9-14.9)
[2018-10-29 18:05] LABS: ALBUMIN 3.5 g/dl (3.3-4.9); ALBUMIN/GLOBULIN RATIO 0.89; ALKALINE PHOSPHATASE 136 IU/L (42-121); AMYLASE 61 U/L (11-123); ANION GAP 7 (5-13); ASPARTATE AMINO TRANSFERASE 37 IU/L (15-46); BILIRUBIN,INDIRECT 0.3 mg/dl (0-1.1); BILIRUBIN,TOTAL 0.3 mg/dl (0.2-1.3); BLOOD UREA NITROGEN 27 mg/dl (7-20); CALCIUM 8.9 mg/dl (8.4-10.2); CARBON DIOXIDE 32 mmol/L (21-31); CHLORIDE 92 mmol/L (97-110); CREATININE 0.56 mg/dl (0.44-1.00); GLUCOSE 129 mg/dl (70-220); LIPASE 82 U/L (23-300); PARTIAL THROMBOPLASTIN TIME 35.3 Sec (23.0-35.0); POTASSIUM 3.6 mmol/L (3.5-5.1); SODIUM 131 mmol/L (135-144); TOTAL PROTEIN 7.4 g/dl (6.1-8.1)
[2018-10-29 18:15] LABS: ALANINE AMINOTRANSFERASE < 6 IU/L (13-69)
[2018-10-29 18:17] LABS: B-TYPE NATRIURETIC PEPTIDE 2510 PG/ML (0-450); TROPONIN-I < 0.012 ng/ml (0.000-0.120)
[2018-10-29] MEDS: SOD CHLORIDE 0.9% 1,000 ML IV ×2 (18:27→21:54)
[2018-10-29 19:13] LABS: URINE BLOOD (Dip) POC 2+ (NEGATIVE); URINE GLUCOSE (Dip) POC Negative (NEGATIVE); URINE KETONES (Dip) POC Negative (NEGATIVE); URINE LEUKOCYTE EST (Dip) POC 3+ (NEGATIVE); URINE NITRITE (Dip) POC Positive (NEGATIVE); URINE TOTAL PROTEIN POC 1+ (NEGATIVE)
[2018-10-29] MEDS: morphine 2 MG INJ IV (19:13)
[2018-10-29] MEDS: ONDANSETRON 4 MG INJ IV (19:13)
[2018-10-29] MEDS: ALBUTEROL 0.083% (NEB) 2.5 MG/3 ML AMP NEB (19:38)
[2018-10-29] MEDS: IPRATROPIUM (NEB) 0.5 MG/2.5 ML AMP NEB (19:38)
[2018-10-29] MEDS: ACETAMINOPHEN 500 MG TAB PO (19:42)
[2018-10-29] MEDS: CEFTRIAXONE 1 GM/50 ML (PMX) 50 ML IVPB (19:43)
[2018-10-29] MEDS ORDERED: ACETAMINOPHEN 325 MG TAB PO (20:00)
[2018-10-29] MEDS ORDERED: NACL 0.9% 3 ML SYG IV (20:00)
[2018-10-29] MEDS ORDERED: ONDANSETRON 4 MG INJ IV (20:00)
[2018-10-29] MEDS ORDERED: NITROGLYCERIN (SL) 0.4 MG TAB SL (20:00)
[2018-10-29] MEDS: QUETIAPINE 25 MG TAB PO (22:24)
[2018-10-29] MEDS: PAROXETINE 20 MG TAB PO (22:24)
[2018-10-29] MEDS: DOCUSATE SODIUM 100 MG CAP PO (22:24)
[2018-10-29] MEDS: MONTELUKAST 10 MG TAB PO (22:24)
[2018-10-29 23:47] LABS: LACTIC ACID 1.4 mmol/L (0.5-2.0)
[2018-10-30 01:59] LABS: ADD UMIC YES; UR ASCORBIC ACID 20 mg/dL (NEGATIVE); UR BILIRUBIN (Dip) NEGATIVE (NEGATIVE); UR BLOOD (Dip) 1+ mg/dL (NEGATIVE); UR CLARITY SLIGHTLY CLOUDY (CLEAR); UR COLOR YELLOW (YELLOW); UR GLUCOSE (Dip) NEGATIVE (NEGATIVE); UR KETONES (Dip) NEGATIVE (NEGATIVE); UR LEUKOCYTE ESTERASE (Dip) TRACE Leu/ul (NEGATIVE); UR MUCUS FEW /HPF (NONE SEEN); UR NITRITE (Dip) POSITIVE (NEGATIVE); UR RBC 1 /HPF (0-5); UR SPECIFIC GRAVITY (Dip) 1.013 (1.003-1.030); UR SQUAMOUS EPITHELIAL CELL FEW /HPF (FEW); UR TOTAL PROTEIN (Dip) NEGATIVE (NEGATIVE); UR UROBILINOGEN (Dip) NEGATIVE (NEGATIVE); UR WBC 10 /HPF (0-5)
[2018-10-30 06:14] LABS: ADD MAN DIFF? NO
[2018-10-30 06:38] LABS: BASOPHILS % 0.3 % (0.0-2.0); EOSINOPHILS # 0.1 10^3/ul (0.0-0.5); EOSINOPHILS % 0.5 % (0.0-7.0); HEMATOCRIT 32.1 % (37.0-47.0); HEMOGLOBIN 10.1 g/dl (12.0-16.0); LYMPHOCYTES % 10.4 % (15.0-51.0); MEAN CORPUSCULAR HEMOGLOBIN 26.6 pg (29.0-33.0); MEAN CORPUSCULAR HGB CONC 31.5 g/dl (32.0-37.0); MEAN CORPUSCULAR VOLUME 84.7 fl (82.0-101.0); MEAN PLATELET VOLUME 10.3 fl (7.4-10.4); MONOCYTE # 1.1 10^3/ul (0.3-0.9); MONOCYTES % 11.5 % (0.0-11.0); NEUTROPHIL # 7.4 10^3/ul (1.6-7.5); NEUTROPHILS % 76.5 % (39.0-77.0); PLATELET COUNT 272 10^3/UL (140-415); RED BLOOD COUNT 3.79 10^6/ul (4.20-5.40); RED CELL DISTRIBUTION WIDTH 15.9 % (11.5-14.5)
[2018-10-30 06:38] LABS: WHITE BLOOD COUNT 9.7 10^3/ul (4.8-10.8)
[2018-10-30 07:06] LABS: ALANINE AMINOTRANSFERASE 9 IU/L (13-69); ALBUMIN/GLOBULIN RATIO 0.83; ALKALINE PHOSPHATASE 119 IU/L (42-121); ANION GAP 9 (5-13); ASPARTATE AMINO TRANSFERASE 21 IU/L (15-46); BILIRUBIN,INDIRECT 0.1 mg/dl (0-1.1); BILIRUBIN,TOTAL 0.1 mg/dl (0.2-1.3); BLOOD UREA NITROGEN 16 mg/dl (7-20); CALCIUM 8.3 mg/dl (8.4-10.2); CARBON DIOXIDE 31 mmol/L (21-31); CHLORIDE 96 mmol/L (97-110); CREATININE 0.51 mg/dl (0.44-1.00); GLUCOSE 112 mg/dl (70-220); MAGNESIUM 2.1 mg/dl (1.7-2.5); PHOSPHORUS 2.7 mg/dl (2.5-4.9); POTASSIUM 3.1 mmol/L (3.5-5.1); SODIUM 136 mmol/L (135-144); TOTAL PROTEIN 6.6 g/dl (6.1-8.1)
[2018-10-30] MEDS: QUETIAPINE 25 MG TAB PO ×2 (08:27→20:53)
[2018-10-30] MEDS: MEMANTINE 10 MG TAB PO (08:27)
[2018-10-30] MEDS: PANTOPRAZOLE (EC) 40 MG TAB PO ×2 (08:27→17:21)
[2018-10-30] MEDS: DOCUSATE SODIUM 100 MG CAP PO ×2 (08:27→21:00)
[2018-10-30] MEDS: ASPIRIN (EC) 81 MG TAB PO (08:27)
[2018-10-30] MEDS: DONEPEZIL 5 MG TAB PO (08:27)
[2018-10-30] MEDS: FUROSEMIDE 40 MG TAB PO (08:28)
[2018-10-30] MEDS: LISINOPRIL 5 MG TAB PO (08:28)
[2018-10-30] MEDS: OXYBUTYNIN 5 MG TAB PO (09:47)
[2018-10-30] MEDS: PAROXETINE 20 MG TAB PO ×2 (09:47→20:53)
[2018-10-30] MEDS: ANASTROZOLE 1 MG TAB PO (11:17)
[2018-10-30] MEDS: SOD CHLORIDE 0.9% 1,000 ML IV ×2 (12:08→14:25)
[2018-10-30] MEDS: ACETAMINOPHEN 325 MG TAB PO ×2 (15:17→23:06)
[2018-10-30] MEDS: FOSFOMYCIN 3 GM PACKET PO (17:21)
[2018-10-30] MEDS: CEFTRIAXONE 1 GM/50 ML (PMX) 50 ML IVPB (20:51)
[2018-10-30] MEDS: MONTELUKAST 10 MG TAB PO (20:53)
[2018-10-30] MEDS: BALSAM PERU/CASTOR OIL 60 GM TUBE TOP (20:53)
[2018-10-30] MEDS: PERMETHRIN 5% 60 GM CR TOP (20:53)
[2018-10-31] MEDS: ALPRAZOLAM 0.25 MG TAB PO (01:00)
[2018-10-31] MEDS: PANTOPRAZOLE (EC) 40 MG TAB PO ×2 (06:36→16:59)
[2018-10-31] MEDS: ACETAMINOPHEN 325 MG TAB PO (08:54)
[2018-10-31] MEDS: LISINOPRIL 5 MG TAB PO ×2 (09:00→16:59)
[2018-10-31] MEDS: PAROXETINE 20 MG TAB PO ×2 (09:20→21:35)
[2018-10-31] MEDS: MEMANTINE 10 MG TAB PO (09:20)
[2018-10-31] MEDS: ASPIRIN (EC) 81 MG TAB PO (09:20)
[2018-10-31] MEDS: DOCUSATE SODIUM 100 MG CAP PO ×2 (09:20→21:35)
[2018-10-31] MEDS: FUROSEMIDE 40 MG TAB PO (09:20)
[2018-10-31] MEDS: DONEPEZIL 5 MG TAB PO (09:21)
[2018-10-31] MEDS: QUETIAPINE 25 MG TAB PO ×2 (09:21→21:35)
[2018-10-31] MEDS: OXYBUTYNIN 5 MG TAB PO (09:21)
[2018-10-31] MEDS: BALSAM PERU/CASTOR OIL 60 GM TUBE TOP ×2 (09:22→21:35)
[2018-10-31] MEDS: ANASTROZOLE 1 MG TAB PO (09:25)
[2018-10-31] MEDS: POTASSIUM CHLORIDE (SR) 20 MEQ TAB PO ×2 (14:30→21:45)
[2018-10-31] MEDS: CEFTRIAXONE 1 GM/50 ML (PMX) 50 ML IVPB (21:34)
[2018-10-31] MEDS: MONTELUKAST 10 MG TAB PO (21:35)
[2018-11-01 06:12] LABS: ADD MAN DIFF? NO
[2018-11-01 06:15] LABS: WHITE BLOOD COUNT 11.3 10^3/ul (4.8-10.8)
[2018-11-01 06:15] LABS: BASOPHIL # 0.1 10^3/ul (0.0-0.1); BASOPHILS % 0.4 % (0.0-2.0); EOSINOPHILS # 0.1 10^3/ul (0.0-0.5); HEMATOCRIT 29.8 % (37.0-47.0); HEMOGLOBIN 9.7 g/dl (12.0-16.0); LYMPHOCYTES # 1.4 10^3/ul (0.8-2.9); MEAN CORPUSCULAR HEMOGLOBIN 27.1 pg (29.0-33.0); MEAN CORPUSCULAR HGB CONC 32.6 g/dl (32.0-37.0); MEAN CORPUSCULAR VOLUME 83.2 fl (82.0-101.0); MEAN PLATELET VOLUME 9.3 fl (7.4-10.4); MONOCYTES % 9.1 % (0.0-11.0); NEUTROPHIL # 8.4 10^3/ul (1.6-7.5); NEUTROPHILS % 74.4 % (39.0-77.0); PLATELET COUNT 329 10^3/UL (140-415); RED BLOOD COUNT 3.58 10^6/ul (4.20-5.40); RED CELL DISTRIBUTION WIDTH 15.5 % (11.5-14.5)
[2018-11-01] MEDS: LEVOFLOXACIN 500 MG TAB PO (06:18)
[2018-11-01] MEDS: PANTOPRAZOLE (EC) 40 MG TAB PO ×2 (06:18→17:05)
[2018-11-01 06:47] LABS: ANION GAP 4 (5-13); BLOOD UREA NITROGEN 8 mg/dl (7-20); CALCIUM 8.3 mg/dl (8.4-10.2); CARBON DIOXIDE 32 mmol/L (21-31); CHLORIDE 96 mmol/L (97-110); CREATININE 0.46 mg/dl (0.44-1.00); GLUCOSE 105 mg/dl (70-220); POTASSIUM 3.8 mmol/L (3.5-5.1); SODIUM 132 mmol/L (135-144)
[2018-11-01 06:53] LABS: MAGNESIUM 1.8 mg/dl (1.7-2.5)
[2018-11-01] MEDS: ANASTROZOLE 1 MG TAB PO (08:34)
[2018-11-01] MEDS: DOCUSATE SODIUM 100 MG CAP PO ×2 (08:35→20:48)
[2018-11-01] MEDS: ASPIRIN (EC) 81 MG TAB PO (08:36)
[2018-11-01] MEDS: PAROXETINE 20 MG TAB PO ×2 (08:36→20:48)
[2018-11-01] MEDS: OXYBUTYNIN 5 MG TAB PO (08:37)
[2018-11-01] MEDS: DONEPEZIL 5 MG TAB PO (08:37)
[2018-11-01] MEDS: QUETIAPINE 25 MG TAB PO ×2 (08:37→20:47)
[2018-11-01] MEDS: MEMANTINE 10 MG TAB PO (08:38)
[2018-11-01] MEDS: FUROSEMIDE 40 MG TAB PO (08:39)
[2018-11-01] MEDS: BALSAM PERU/CASTOR OIL 60 GM TUBE TOP ×2 (08:40→20:48)
[2018-11-01] MEDS: LISINOPRIL 5 MG TAB PO (08:51)
[2018-11-01] MEDS: CEFTRIAXONE 1 GM/50 ML (PMX) 50 ML IVPB (20:47)
[2018-11-01] MEDS: MEGESTROL (40 MG/ML) 10ML CUP PO (20:47)
[2018-11-01] MEDS: MONTELUKAST 10 MG TAB PO (20:48)
[2018-11-01] MEDS: ACETAMINOPHEN 325 MG TAB PO (20:49)
[2018-11-01] MEDS: HEPARIN 5,000 UNIT/1 ML VIAL SC (21:08)
[2018-11-02 06:15] LABS: ADD MAN DIFF? NO
[2018-11-02] MEDS: LEVOFLOXACIN 500 MG TAB PO (06:26)
[2018-11-02] MEDS: PANTOPRAZOLE (EC) 40 MG TAB PO ×2 (06:26→17:55)
[2018-11-02] MEDS: HEPARIN 5,000 UNIT/1 ML VIAL SC ×3 (06:28→21:39)
[2018-11-02 06:35] LABS: BASOPHILS % 0.3 % (0.0-2.0); EOSINOPHILS # 0.2 10^3/ul (0.0-0.5); EOSINOPHILS % 1.9 % (0.0-7.0); HEMATOCRIT 30.3 % (37.0-47.0); LYMPHOCYTES # 1.4 10^3/ul (0.8-2.9); MEAN CORPUSCULAR HEMOGLOBIN 27.2 pg (29.0-33.0); MEAN CORPUSCULAR VOLUME 82.3 fl (82.0-101.0); MEAN PLATELET VOLUME 9.3 fl (7.4-10.4); MONOCYTE # 0.9 10^3/ul (0.3-0.9); MONOCYTES % 8.1 % (0.0-11.0); NEUTROPHIL # 8.5 10^3/ul (1.6-7.5); NEUTROPHILS % 75.5 % (39.0-77.0); PLATELET COUNT 388 10^3/UL (140-415); RED BLOOD COUNT 3.68 10^6/ul (4.20-5.40); RED CELL DISTRIBUTION WIDTH 15.5 % (11.5-14.5)
[2018-11-02 06:35] LABS: WHITE BLOOD COUNT 11.3 10^3/ul (4.8-10.8)
[2018-11-02 06:46] LABS: HEMOGLOBIN A1C 5.9 % (0-5.9)
[2018-11-02 07:00] LABS: PHOSPHORUS 3.4 mg/dl (2.5-4.9)
[2018-11-02 07:00] LABS: MAGNESIUM 1.9 mg/dl (1.7-2.5)
[2018-11-02 07:03] LABS: ANION GAP 5 (5-13); BLOOD UREA NITROGEN 9 mg/dl (7-20); CALCIUM 8.6 mg/dl (8.4-10.2); CARBON DIOXIDE 36 mmol/L (21-31); CHLORIDE 93 mmol/L (97-110); CREATININE 0.46 mg/dl (0.44-1.00); GLUCOSE 121 mg/dl (70-220); POTASSIUM 3.7 mmol/L (3.5-5.1); SODIUM 134 mmol/L (135-144)
[2018-11-02] MEDS: OXYBUTYNIN 5 MG TAB PO (09:14)
[2018-11-02] MEDS: MEMANTINE 10 MG TAB PO (09:14)
[2018-11-02] MEDS: PAROXETINE 20 MG TAB PO ×2 (09:14→21:36)
[2018-11-02] MEDS: QUETIAPINE 25 MG TAB PO ×2 (09:14→21:36)
[2018-11-02] MEDS: DONEPEZIL 5 MG TAB PO (09:14)
[2018-11-02] MEDS: DOCUSATE SODIUM 100 MG CAP PO ×2 (09:14→21:00)
[2018-11-02] MEDS: MEGESTROL (40 MG/ML) 10ML CUP PO ×2 (09:14→21:36)
[2018-11-02] MEDS: ASPIRIN (EC) 81 MG TAB PO (09:15)
[2018-11-02] MEDS: ANASTROZOLE 1 MG TAB PO (09:15)
[2018-11-02] MEDS: FUROSEMIDE 40 MG TAB PO (09:15)
[2018-11-02] MEDS: LISINOPRIL 5 MG TAB PO (09:16)
[2018-11-02] MEDS: BALSAM PERU/CASTOR OIL 60 GM TUBE TOP ×2 (09:19→21:37)
[2018-11-02] MEDS: ACETAMINOPHEN 325 MG TAB PO (11:14)
[2018-11-02] MEDS: MONTELUKAST 10 MG TAB PO (21:37)
[2018-11-03] MEDS: LEVOFLOXACIN 500 MG TAB PO (06:40)
[2018-11-03] MEDS: PANTOPRAZOLE (EC) 40 MG TAB PO ×2 (06:41→17:54)
[2018-11-03] MEDS: HEPARIN 5,000 UNIT/1 ML VIAL SC ×3 (06:43→20:54)
[2018-11-03] MEDS: MEMANTINE 10 MG TAB PO (08:04)
[2018-11-03] MEDS: PAROXETINE 20 MG TAB PO ×2 (08:04→20:53)
[2018-11-03] MEDS: FUROSEMIDE 40 MG TAB PO (08:04)
[2018-11-03] MEDS: MEGESTROL (40 MG/ML) 10ML CUP PO ×2 (08:04→20:54)
[2018-11-03] MEDS: DOCUSATE SODIUM 100 MG CAP PO ×2 (08:04→20:53)
[2018-11-03] MEDS: ASPIRIN (EC) 81 MG TAB PO (08:04)
[2018-11-03] MEDS: LISINOPRIL 5 MG TAB PO (08:05)
[2018-11-03] MEDS: OXYBUTYNIN 5 MG TAB PO (08:05)
[2018-11-03] MEDS: QUETIAPINE 25 MG TAB PO ×2 (08:05→20:53)
[2018-11-03] MEDS: ANASTROZOLE 1 MG TAB PO (08:06)
[2018-11-03] MEDS: DONEPEZIL 5 MG TAB PO (08:06)
[2018-11-03] MEDS: BALSAM PERU/CASTOR OIL 60 GM TUBE TOP ×2 (08:36→20:55)
[2018-11-03] MEDS: MONTELUKAST 10 MG TAB PO (20:54)
[2018-11-04] MEDS: HEPARIN 5,000 UNIT/1 ML VIAL SC ×3 (06:04→21:57)
[2018-11-04] MEDS: LEVOFLOXACIN 500 MG TAB PO (06:04)
[2018-11-04] MEDS: PANTOPRAZOLE (EC) 40 MG TAB PO ×2 (06:04→18:38)
[2018-11-04] MEDS: MEGESTROL (40 MG/ML) 10ML CUP PO ×2 (08:55→21:56)
[2018-11-04] MEDS: ASPIRIN (EC) 81 MG TAB PO (08:55)
[2018-11-04] MEDS: ANASTROZOLE 1 MG TAB PO (08:55)
[2018-11-04] MEDS: FUROSEMIDE 40 MG TAB PO (08:55)
[2018-11-04] MEDS: QUETIAPINE 25 MG TAB PO ×2 (08:56→21:56)
[2018-11-04] MEDS: LISINOPRIL 5 MG TAB PO (08:56)
[2018-11-04] MEDS: DONEPEZIL 5 MG TAB PO (08:56)
[2018-11-04] MEDS: PAROXETINE 20 MG TAB PO ×2 (08:56→21:56)
[2018-11-04] MEDS: MEMANTINE 10 MG TAB PO (08:56)
[2018-11-04] MEDS: DOCUSATE SODIUM 100 MG CAP PO ×2 (08:56→21:56)
[2018-11-04] MEDS: OXYBUTYNIN 5 MG TAB PO (08:57)
[2018-11-04] MEDS: BALSAM PERU/CASTOR OIL 60 GM TUBE TOP ×2 (11:03→21:57)
[2018-11-04] MEDS: MONTELUKAST 10 MG TAB PO (21:56)
[2018-11-05] MEDS: PANTOPRAZOLE (EC) 40 MG TAB PO ×2 (06:47→17:46)
[2018-11-05] MEDS: LEVOFLOXACIN 500 MG TAB PO (06:47)
[2018-11-05] MEDS: HEPARIN 5,000 UNIT/1 ML VIAL SC ×3 (06:48→21:54)
[2018-11-05] MEDS: MEGESTROL (40 MG/ML) 10ML CUP PO (08:25)
[2018-11-05] MEDS: DOCUSATE SODIUM 100 MG CAP PO ×2 (08:25→21:54)
[2018-11-05] MEDS: PAROXETINE 20 MG TAB PO ×2 (08:26→21:54)
[2018-11-05] MEDS: QUETIAPINE 25 MG TAB PO ×2 (08:26→21:54)
[2018-11-05] MEDS: DONEPEZIL 5 MG TAB PO (08:26)
[2018-11-05] MEDS: ASPIRIN (EC) 81 MG TAB PO (08:26)
[2018-11-05] MEDS: OXYBUTYNIN 5 MG TAB PO (08:27)
[2018-11-05] MEDS: MEMANTINE 10 MG TAB PO (08:27)
[2018-11-05] MEDS: ANASTROZOLE 1 MG TAB PO (08:27)
[2018-11-05] MEDS: BALSAM PERU/CASTOR OIL 60 GM TUBE TOP ×2 (08:28→21:55)
[2018-11-05] MEDS: LISINOPRIL 5 MG TAB PO (08:29)
[2018-11-05] MEDS: FUROSEMIDE 40 MG TAB PO (08:29)
[2018-11-05] MEDS: MONTELUKAST 10 MG TAB PO (21:54)
[2018-11-06] MEDS: ACETAMINOPHEN 325 MG TAB PO (00:50)
[2018-11-06 05:29] LABS: ADD MAN DIFF? NO
[2018-11-06 05:37] LABS: BASOPHIL # 0.1 10^3/ul (0.0-0.1); BASOPHILS % 0.4 % (0.0-2.0); EOSINOPHILS # 0.3 10^3/ul (0.0-0.5); EOSINOPHILS % 2.1 % (0.0-7.0); HEMATOCRIT 29.6 % (37.0-47.0); HEMOGLOBIN 9.8 g/dl (12.0-16.0); LYMPHOCYTES # 1.8 10^3/ul (0.8-2.9); LYMPHOCYTES % 12.2 % (15.0-51.0); MEAN CORPUSCULAR HEMOGLOBIN 26.8 pg (29.0-33.0); MEAN CORPUSCULAR HGB CONC 33.1 g/dl (32.0-37.0); MEAN CORPUSCULAR VOLUME 81.1 fl (82.0-101.0); MEAN PLATELET VOLUME 8.6 fl (7.4-10.4); MONOCYTE # 1.1 10^3/ul (0.3-0.9); MONOCYTES % 7.4 % (0.0-11.0); NEUTROPHIL # 10.8 10^3/ul (1.6-7.5); NEUTROPHILS % 74.6 % (39.0-77.0); PLATELET COUNT 527 10^3/UL (140-415); RED BLOOD COUNT 3.65 10^6/ul (4.20-5.40); RED CELL DISTRIBUTION WIDTH 15.3 % (11.5-14.5)
[2018-11-06 05:37] LABS: WHITE BLOOD COUNT 14.5 10^3/ul (4.8-10.8)
[2018-11-06] MEDS: HEPARIN 5,000 UNIT/1 ML VIAL SC ×3 (05:53→22:05)
[2018-11-06] MEDS: PANTOPRAZOLE (EC) 40 MG TAB PO ×2 (05:53→18:03)
[2018-11-06 05:55] LABS: ANION GAP 8 (5-13); BLOOD UREA NITROGEN 8 mg/dl (7-20); CALCIUM 9.2 mg/dl (8.4-10.2); CARBON DIOXIDE 31 mmol/L (21-31); CHLORIDE 96 mmol/L (97-110); CREATININE 0.47 mg/dl (0.44-1.00); GLUCOSE 100 mg/dl (70-220); POTASSIUM 4.4 mmol/L (3.5-5.1); SODIUM 135 mmol/L (135-144)
[2018-11-06] MEDS: DOCUSATE SODIUM 100 MG CAP PO ×2 (09:17→21:02)
[2018-11-06] MEDS: MEMANTINE 10 MG TAB PO (09:17)
[2018-11-06] MEDS: PAROXETINE 20 MG TAB PO ×2 (09:17→21:02)
[2018-11-06] MEDS: QUETIAPINE 25 MG TAB PO ×2 (09:17→21:02)
[2018-11-06] MEDS: FUROSEMIDE 40 MG TAB PO (09:17)
[2018-11-06] MEDS: ANASTROZOLE 1 MG TAB PO (09:18)
[2018-11-06] MEDS: BALSAM PERU/CASTOR OIL 60 GM TUBE TOP ×2 (09:20→21:03)
[2018-11-06] MEDS: LISINOPRIL 5 MG TAB PO (10:32)
[2018-11-06] MEDS: MONTELUKAST 10 MG TAB PO (21:02)
[2018-11-07] MEDS: HEPARIN 5,000 UNIT/1 ML VIAL SC ×3 (06:12→22:13)
[2018-11-07] MEDS: PANTOPRAZOLE (EC) 40 MG TAB PO ×3 (06:13→16:56)
[2018-11-07] MEDS: ANASTROZOLE 1 MG TAB PO (08:41)
[2018-11-07] MEDS: QUETIAPINE 25 MG TAB PO ×2 (08:42→20:15)
[2018-11-07] MEDS: MEMANTINE 10 MG TAB PO (08:42)
[2018-11-07] MEDS: DOCUSATE SODIUM 100 MG CAP PO ×2 (08:42→20:15)
[2018-11-07] MEDS: PAROXETINE 20 MG TAB PO ×2 (08:42→20:15)
[2018-11-07] MEDS: LISINOPRIL 5 MG TAB PO (08:43)
[2018-11-07] MEDS: FUROSEMIDE 40 MG TAB PO (08:43)
[2018-11-07] MEDS: BALSAM PERU/CASTOR OIL 60 GM TUBE TOP ×2 (08:43→20:17)
[2018-11-07] MEDS: MONTELUKAST 10 MG TAB PO (20:15)
[2018-11-08] MEDS: PANTOPRAZOLE (EC) 40 MG TAB PO ×2 (06:23→17:54)
[2018-11-08] MEDS: HEPARIN 5,000 UNIT/1 ML VIAL SC ×3 (06:24→22:03)
[2018-11-08] MEDS: DOCUSATE SODIUM 100 MG CAP PO ×2 (09:03→20:42)
[2018-11-08] MEDS: PAROXETINE 20 MG TAB PO ×2 (09:03→20:42)
[2018-11-08] MEDS: ANASTROZOLE 1 MG TAB PO (09:03)
[2018-11-08] MEDS: LISINOPRIL 5 MG TAB PO (09:04)
[2018-11-08] MEDS: FUROSEMIDE 40 MG TAB PO (09:04)
[2018-11-08] MEDS: QUETIAPINE 25 MG TAB PO ×2 (09:04→20:42)
[2018-11-08] MEDS: MEMANTINE 10 MG TAB PO (09:04)
[2018-11-08] MEDS: BALSAM PERU/CASTOR OIL 60 GM TUBE TOP ×2 (09:05→20:42)
[2018-11-08] MEDS: ACETAMINOPHEN 325 MG TAB PO (17:55)
[2018-11-08] MEDS: MONTELUKAST 10 MG TAB PO (20:42)
[2018-11-09 05:07] LABS: ADD MAN DIFF? NO
[2018-11-09 05:09] LABS: BASOPHIL # 0.1 10^3/ul (0.0-0.1); BASOPHILS % 0.5 % (0.0-2.0); EOSINOPHILS # 0.2 10^3/ul (0.0-0.5); HEMOGLOBIN 9.9 g/dl (12.0-16.0); MEAN PLATELET VOLUME 8.8 fl (7.4-10.4); MONOCYTE # 0.9 10^3/ul (0.3-0.9); MONOCYTES % 8.7 % (0.0-11.0); NEUTROPHILS % 67.2 % (39.0-77.0); PLATELET COUNT 599 10^3/UL (140-415); RED BLOOD COUNT 3.66 10^6/ul (4.20-5.40); RED CELL DISTRIBUTION WIDTH 15.4 % (11.5-14.5)
[2018-11-09 05:09] LABS: WHITE BLOOD COUNT 10.5 10^3/ul (4.8-10.8)
[2018-11-09] MEDS: HEPARIN 5,000 UNIT/1 ML VIAL SC ×3 (05:33→22:00)
[2018-11-09 05:36] LABS: ANION GAP 8 (5-13); BLOOD UREA NITROGEN 9 mg/dl (7-20); CALCIUM 9.4 mg/dl (8.4-10.2); CARBON DIOXIDE 29 mmol/L (21-31); CHLORIDE 99 mmol/L (97-110); CREATININE 0.48 mg/dl (0.44-1.00); GLUCOSE 107 mg/dl (70-220); POTASSIUM 4.9 mmol/L (3.5-5.1); SODIUM 136 mmol/L (135-144)
[2018-11-09] MEDS: PANTOPRAZOLE (EC) 40 MG TAB PO ×2 (06:47→18:00)
[2018-11-09] MEDS: DOCUSATE SODIUM 100 MG CAP PO ×2 (09:40→20:28)
[2018-11-09] MEDS: LISINOPRIL 5 MG TAB PO (09:40)
[2018-11-09] MEDS: QUETIAPINE 25 MG TAB PO ×2 (09:40→20:28)
[2018-11-09] MEDS: FUROSEMIDE 40 MG TAB PO (09:40)
[2018-11-09] MEDS: MEMANTINE 10 MG TAB PO (09:40)
[2018-11-09] MEDS: ANASTROZOLE 1 MG TAB PO (09:42)
[2018-11-09] MEDS: BALSAM PERU/CASTOR OIL 60 GM TUBE TOP (09:50)
[2018-11-09] MEDS: PAROXETINE 20 MG TAB PO ×2 (09:51→20:28)
[2018-11-09] MEDS: MONTELUKAST 10 MG TAB PO (20:27)
[2018-11-09] MEDS: ACETAMINOPHEN 325 MG TAB PO (20:28)
[2018-11-10] MEDS: BALSAM PERU/CASTOR OIL 60 GM TUBE TOP ×3 (06:03→21:26)
[2018-11-10] MEDS: HEPARIN 5,000 UNIT/1 ML VIAL SC ×3 (06:08→21:25)
[2018-11-10] MEDS: DOCUSATE SODIUM 100 MG CAP PO ×2 (09:51→20:38)
[2018-11-10] MEDS: MEMANTINE 10 MG TAB PO (09:51)
[2018-11-10] MEDS: QUETIAPINE 25 MG TAB PO ×2 (09:51→20:38)
[2018-11-10] MEDS: FUROSEMIDE 40 MG TAB PO (09:52)
[2018-11-10] MEDS: PAROXETINE 20 MG TAB PO ×2 (09:52→20:40)
[2018-11-10] MEDS: PANTOPRAZOLE (EC) 40 MG TAB PO ×2 (09:52→17:35)
[2018-11-10] MEDS: LISINOPRIL 5 MG TAB PO (09:52)
[2018-11-10] MEDS: ANASTROZOLE 1 MG TAB PO (09:53)
[2018-11-10] MEDS: ACETAMINOPHEN 325 MG TAB PO (20:38)
[2018-11-10] MEDS: MONTELUKAST 10 MG TAB PO (20:38)
[2018-11-11] MEDS: HEPARIN 5,000 UNIT/1 ML VIAL SC ×3 (06:10→21:30)
[2018-11-11] MEDS: ALPRAZOLAM 0.25 MG TAB PO (08:23)
[2018-11-11] MEDS: MEMANTINE 10 MG TAB PO (08:23)
[2018-11-11] MEDS: PANTOPRAZOLE (EC) 40 MG TAB PO ×2 (08:23→17:51)
[2018-11-11] MEDS: PAROXETINE 20 MG TAB PO ×2 (08:24→21:28)
[2018-11-11] MEDS: DOCUSATE SODIUM 100 MG CAP PO ×2 (08:25→21:28)
[2018-11-11] MEDS: QUETIAPINE 25 MG TAB PO ×2 (08:25→21:28)
[2018-11-11] MEDS: ANASTROZOLE 1 MG TAB PO (08:26)
[2018-11-11] MEDS: LISINOPRIL 5 MG TAB PO (08:28)
[2018-11-11] MEDS: FUROSEMIDE 40 MG TAB PO (08:30)
[2018-11-11] MEDS: BALSAM PERU/CASTOR OIL 60 GM TUBE TOP ×2 (08:30→21:31)
[2018-11-11] MEDS: ACETAMINOPHEN 325 MG TAB PO (17:51)
[2018-11-11] MEDS: MONTELUKAST 10 MG TAB PO (21:28)
[2018-11-12] MEDS: ACETAMINOPHEN 325 MG TAB PO (06:37)
[2018-11-12] MEDS: HEPARIN 5,000 UNIT/1 ML VIAL SC ×3 (06:37→21:07)
[2018-11-12] MEDS: MEMANTINE 10 MG TAB PO (08:26)
[2018-11-12] MEDS: QUETIAPINE 25 MG TAB PO ×2 (08:26→20:00)
[2018-11-12] MEDS: PANTOPRAZOLE (EC) 40 MG TAB PO ×2 (08:26→16:30)
[2018-11-12] MEDS: FUROSEMIDE 40 MG TAB PO (08:27)
[2018-11-12] MEDS: DOCUSATE SODIUM 100 MG CAP PO ×2 (08:27→20:00)
[2018-11-12] MEDS: PAROXETINE 20 MG TAB PO ×2 (08:27→20:00)
[2018-11-12] MEDS: LISINOPRIL 5 MG TAB PO (08:28)
[2018-11-12] MEDS: BALSAM PERU/CASTOR OIL 60 GM TUBE TOP ×2 (08:28→20:02)
[2018-11-12] MEDS: ALPRAZOLAM 0.25 MG TAB PO (08:29)
[2018-11-12] MEDS: ANASTROZOLE 1 MG TAB PO (08:31)
[2018-11-12] MEDS: MONTELUKAST 10 MG TAB PO (20:00)
[2018-11-13] MEDS: HEPARIN 5,000 UNIT/1 ML VIAL SC ×3 (06:07→21:08)
[2018-11-13] MEDS: PANTOPRAZOLE (EC) 40 MG TAB PO ×2 (08:13→17:41)
[2018-11-13] MEDS: MEMANTINE 10 MG TAB PO (08:13)
[2018-11-13] MEDS: ALPRAZOLAM 0.25 MG TAB PO (08:13)
[2018-11-13] MEDS: DOCUSATE SODIUM 100 MG CAP PO ×2 (08:13→20:48)
[2018-11-13] MEDS: ANASTROZOLE 1 MG TAB PO (08:14)
[2018-11-13] MEDS: QUETIAPINE 25 MG TAB PO ×2 (08:14→20:48)
[2018-11-13] MEDS: PAROXETINE 20 MG TAB PO ×2 (08:14→20:48)
[2018-11-13] MEDS: FUROSEMIDE 40 MG TAB PO (08:17)
[2018-11-13] MEDS: BALSAM PERU/CASTOR OIL 60 GM TUBE TOP ×2 (08:17→20:49)
[2018-11-13] MEDS: LISINOPRIL 5 MG TAB PO (08:17)
[2018-11-13] MEDS: MONTELUKAST 10 MG TAB PO (20:48)
[2018-11-14] MEDS: PANTOPRAZOLE (EC) 40 MG TAB PO ×2 (06:15→17:35)
[2018-11-14] MEDS: HEPARIN 5,000 UNIT/1 ML VIAL SC ×3 (06:15→22:01)
[2018-11-14] MEDS: ACETAMINOPHEN 325 MG TAB PO (08:03)
[2018-11-14] MEDS: PAROXETINE 20 MG TAB PO ×2 (08:04→21:59)
[2018-11-14] MEDS: ANASTROZOLE 1 MG TAB PO (08:04)
[2018-11-14] MEDS: MEMANTINE 10 MG TAB PO (08:04)
[2018-11-14] MEDS: DOCUSATE SODIUM 100 MG CAP PO ×2 (08:04→21:59)
[2018-11-14] MEDS: FUROSEMIDE 40 MG TAB PO (08:06)
[2018-11-14] MEDS: LISINOPRIL 5 MG TAB PO (08:06)
[2018-11-14] MEDS: BALSAM PERU/CASTOR OIL 60 GM TUBE TOP ×2 (08:06→22:01)
[2018-11-14] MEDS: QUETIAPINE 25 MG TAB PO ×2 (08:07→21:59)
[2018-11-14] MEDS: MONTELUKAST 10 MG TAB PO (21:59)
[2018-11-15] MEDS: HEPARIN 5,000 UNIT/1 ML VIAL SC ×3 (06:52→21:35)
[2018-11-15] MEDS: PANTOPRAZOLE (EC) 40 MG TAB PO ×2 (06:53→17:39)
[2018-11-15] MEDS: ANASTROZOLE 1 MG TAB PO (08:51)
[2018-11-15] MEDS: DOCUSATE SODIUM 100 MG CAP PO ×2 (08:51→20:14)
[2018-11-15] MEDS: QUETIAPINE 25 MG TAB PO ×2 (08:52→20:14)
[2018-11-15] MEDS: FUROSEMIDE 40 MG TAB PO (08:52)
[2018-11-15] MEDS: MEMANTINE 10 MG TAB PO (08:52)
[2018-11-15] MEDS: LISINOPRIL 5 MG TAB PO (08:52)
[2018-11-15] MEDS: PAROXETINE 20 MG TAB PO ×2 (08:52→20:14)
[2018-11-15] MEDS: BALSAM PERU/CASTOR OIL 60 GM TUBE TOP ×2 (08:57→20:14)
[2018-11-15] MEDS: MONTELUKAST 10 MG TAB PO (20:14)
[2018-11-16] MEDS: HEPARIN 5,000 UNIT/1 ML VIAL SC ×3 (05:57→22:12)
[2018-11-16] MEDS: PANTOPRAZOLE (EC) 40 MG TAB PO ×2 (09:20→17:23)
[2018-11-16] MEDS: QUETIAPINE 25 MG TAB PO ×2 (09:20→20:22)
[2018-11-16] MEDS: LISINOPRIL 5 MG TAB PO (09:20)
[2018-11-16] MEDS: MEMANTINE 10 MG TAB PO (09:20)
[2018-11-16] MEDS: DOCUSATE SODIUM 100 MG CAP PO ×2 (09:21→20:22)
[2018-11-16] MEDS: PAROXETINE 20 MG TAB PO ×2 (09:21→20:22)
[2018-11-16] MEDS: FUROSEMIDE 40 MG TAB PO (09:21)
[2018-11-16] MEDS: ANASTROZOLE 1 MG TAB PO (09:22)
[2018-11-16] MEDS: BALSAM PERU/CASTOR OIL 60 GM TUBE TOP ×2 (09:23→20:22)
[2018-11-16] MEDS: MONTELUKAST 10 MG TAB PO (20:22)
[2018-11-17] MEDS: HEPARIN 5,000 UNIT/1 ML VIAL SC ×3 (06:17→21:37)
[2018-11-17] MEDS: ANASTROZOLE 1 MG TAB PO (08:06)
[2018-11-17] MEDS: PAROXETINE 20 MG TAB PO ×2 (08:06→20:50)
[2018-11-17] MEDS: FUROSEMIDE 40 MG TAB PO (08:07)
[2018-11-17] MEDS: DOCUSATE SODIUM 100 MG CAP PO ×2 (08:07→20:50)
[2018-11-17] MEDS: MEMANTINE 10 MG TAB PO (08:07)
[2018-11-17] MEDS: PANTOPRAZOLE (EC) 40 MG TAB PO ×2 (08:07→17:09)
[2018-11-17] MEDS: QUETIAPINE 25 MG TAB PO ×2 (08:07→20:50)
[2018-11-17] MEDS: LISINOPRIL 5 MG TAB PO (08:07)
[2018-11-17] MEDS: BALSAM PERU/CASTOR OIL 60 GM TUBE TOP ×2 (08:08→20:51)
[2018-11-17] MEDS: MONTELUKAST 10 MG TAB PO (20:50)
[2018-11-18] MEDS: HEPARIN 5,000 UNIT/1 ML VIAL SC ×3 (05:27→21:46)
[2018-11-18] MEDS: PANTOPRAZOLE (EC) 40 MG TAB PO ×2 (08:03→16:49)
[2018-11-18] MEDS: ANASTROZOLE 1 MG TAB PO (08:03)
[2018-11-18] MEDS: DOCUSATE SODIUM 100 MG CAP PO ×2 (08:03→20:57)
[2018-11-18] MEDS: QUETIAPINE 25 MG TAB PO ×2 (08:03→20:58)
[2018-11-18] MEDS: PAROXETINE 20 MG TAB PO ×2 (08:03→20:58)
[2018-11-18] MEDS: MEMANTINE 10 MG TAB PO (08:03)
[2018-11-18] MEDS: LISINOPRIL 5 MG TAB PO (08:04)
[2018-11-18] MEDS: BALSAM PERU/CASTOR OIL 60 GM TUBE TOP ×2 (08:04→20:59)
[2018-11-18] MEDS: FUROSEMIDE 40 MG TAB PO (08:04)
[2018-11-18] MEDS: MONTELUKAST 10 MG TAB PO (20:57)
[2018-11-19] MEDS: HEPARIN 5,000 UNIT/1 ML VIAL SC ×3 (05:25→22:11)
[2018-11-19] MEDS: PANTOPRAZOLE (EC) 40 MG TAB PO ×2 (09:25→17:35)
[2018-11-19] MEDS: QUETIAPINE 25 MG TAB PO ×2 (09:26→21:07)
[2018-11-19] MEDS: ANASTROZOLE 1 MG TAB PO (09:26)
[2018-11-19] MEDS: MEMANTINE 10 MG TAB PO (09:26)
[2018-11-19] MEDS: DOCUSATE SODIUM 100 MG CAP PO ×2 (09:26→21:07)
[2018-11-19] MEDS: PAROXETINE 20 MG TAB PO ×2 (09:27→21:07)
[2018-11-19] MEDS: LISINOPRIL 5 MG TAB PO (09:27)
[2018-11-19] MEDS: FUROSEMIDE 40 MG TAB PO (09:27)
[2018-11-19] MEDS: BALSAM PERU/CASTOR OIL 60 GM TUBE TOP ×2 (09:28→21:08)
[2018-11-19] MEDS: MONTELUKAST 10 MG TAB PO (21:07)
[2018-11-20] MEDS: ACETAMINOPHEN 325 MG TAB PO (04:37)
[2018-11-20] MEDS: HEPARIN 5,000 UNIT/1 ML VIAL SC ×3 (05:24→21:34)
[2018-11-20] MEDS: PANTOPRAZOLE (EC) 40 MG TAB PO ×2 (06:41→17:47)
[2018-11-20] MEDS: DOCUSATE SODIUM 100 MG CAP PO ×2 (08:30→21:33)
[2018-11-20] MEDS: FUROSEMIDE 40 MG TAB PO (08:31)
[2018-11-20] MEDS: QUETIAPINE 25 MG TAB PO ×2 (08:31→21:33)
[2018-11-20] MEDS: ANASTROZOLE 1 MG TAB PO (08:31)
[2018-11-20] MEDS: PAROXETINE 20 MG TAB PO ×2 (08:31→21:33)
[2018-11-20] MEDS: MEMANTINE 10 MG TAB PO (08:31)
[2018-11-20] MEDS: LISINOPRIL 5 MG TAB PO (08:32)
[2018-11-20] MEDS: BALSAM PERU/CASTOR OIL 60 GM TUBE TOP ×2 (08:32→21:33)
[2018-11-20] MEDS: METOPROLOL (XL) 50 MG TAB PO (11:09)
[2018-11-20 11:40] LABS: ADD MAN DIFF? NO
[2018-11-20 11:46] LABS: BASOPHIL # 0.1 10^3/ul (0.0-0.1); BASOPHILS % 0.7 % (0.0-2.0); EOSINOPHILS # 0.2 10^3/ul (0.0-0.5); EOSINOPHILS % 2.3 % (0.0-7.0); HEMATOCRIT 31.7 % (37.0-47.0); HEMOGLOBIN 10.4 g/dl (12.0-16.0); LYMPHOCYTES # 1.6 10^3/ul (0.8-2.9); LYMPHOCYTES % 21.4 % (15.0-51.0); MEAN CORPUSCULAR HEMOGLOBIN 27.4 pg (29.0-33.0); MEAN CORPUSCULAR HGB CONC 32.8 g/dl (32.0-37.0); MEAN CORPUSCULAR VOLUME 83.6 fl (82.0-101.0); MEAN PLATELET VOLUME 9.1 fl (7.4-10.4); MONOCYTE # 0.6 10^3/ul (0.3-0.9); MONOCYTES % 8.6 % (0.0-11.0); NEUTROPHIL # 4.9 10^3/ul (1.6-7.5); NEUTROPHILS % 66.3 % (39.0-77.0); PLATELET COUNT 482 10^3/UL (140-415); RED BLOOD COUNT 3.79 10^6/ul (4.20-5.40); RED CELL DISTRIBUTION WIDTH 15.1 % (11.5-14.5)
[2018-11-20 11:46] LABS: WHITE BLOOD COUNT 7.4 10^3/ul (4.8-10.8)
[2018-11-20 12:10] LABS: ANION GAP 12 (5-13); BLOOD UREA NITROGEN 32 mg/dl (7-20); CALCIUM 10.1 mg/dl (8.4-10.2); CARBON DIOXIDE 26 mmol/L (21-31); CHLORIDE 96 mmol/L (97-110); CREATININE 0.78 mg/dl (0.44-1.00); GLUCOSE 144 mg/dl (70-220); POTASSIUM 4.3 mmol/L (3.5-5.1); SODIUM 134 mmol/L (135-144)
[2018-11-20] MEDS: SOD CHLORIDE 0.9% 250 ML IV (15:28)
[2018-11-20] MEDS: MONTELUKAST 10 MG TAB PO (21:33)
[2018-11-21] MEDS: PANTOPRAZOLE (EC) 40 MG TAB PO ×2 (06:01→17:05)
[2018-11-21] MEDS: HEPARIN 5,000 UNIT/1 ML VIAL SC ×3 (06:01→21:38)
[2018-11-21 06:48] LABS: ANION GAP 11 (5-13); BLOOD UREA NITROGEN 30 mg/dl (7-20); CALCIUM 10.3 mg/dl (8.4-10.2); CARBON DIOXIDE 28 mmol/L (21-31); CHLORIDE 98 mmol/L (97-110); CREATININE 0.72 mg/dl (0.44-1.00); GLUCOSE 109 mg/dl (70-220); POTASSIUM 4.6 mmol/L (3.5-5.1); SODIUM 137 mmol/L (135-144)
[2018-11-21] MEDS: DOCUSATE SODIUM 100 MG CAP PO ×2 (08:54→21:38)
[2018-11-21] MEDS: PAROXETINE 20 MG TAB PO ×2 (08:54→21:37)
[2018-11-21] MEDS: MEMANTINE 10 MG TAB PO (08:54)
[2018-11-21] MEDS: QUETIAPINE 25 MG TAB PO ×2 (08:54→21:37)
[2018-11-21] MEDS: ANASTROZOLE 1 MG TAB PO (08:55)
[2018-11-21] MEDS: METOPROLOL (XL) 50 MG TAB PO (08:55)
[2018-11-21] MEDS: BALSAM PERU/CASTOR OIL 60 GM TUBE TOP ×2 (08:56→21:38)
[2018-11-21] MEDS: LISINOPRIL 5 MG TAB PO (08:56)
[2018-11-21] MEDS: SOD CHLORIDE 0.9% 250 ML IV (15:46)
[2018-11-21] MEDS: MONTELUKAST 10 MG TAB PO (21:38)
[2018-11-22] MEDS: HEPARIN 5,000 UNIT/1 ML VIAL SC ×3 (06:08→21:23)
[2018-11-22] MEDS: PANTOPRAZOLE (EC) 40 MG TAB PO ×2 (06:08→18:15)
[2018-11-22 06:27] LABS: ANION GAP 8 (5-13); BLOOD UREA NITROGEN 33 mg/dl (7-20); CALCIUM 10.2 mg/dl (8.4-10.2); CARBON DIOXIDE 29 mmol/L (21-31); CHLORIDE 101 mmol/L (97-110); CREATININE 0.69 mg/dl (0.44-1.00); GLUCOSE 104 mg/dl (70-220); POTASSIUM 4.2 mmol/L (3.5-5.1); SODIUM 138 mmol/L (135-144)
[2018-11-22] MEDS: ANASTROZOLE 1 MG TAB PO (08:52)
[2018-11-22] MEDS: QUETIAPINE 25 MG TAB PO ×2 (08:52→20:46)
[2018-11-22] MEDS: DOCUSATE SODIUM 100 MG CAP PO ×2 (08:52→20:46)
[2018-11-22] MEDS: MEMANTINE 10 MG TAB PO (08:52)
[2018-11-22] MEDS: PAROXETINE 20 MG TAB PO ×2 (08:52→20:47)
[2018-11-22] MEDS: METOPROLOL (XL) 50 MG TAB PO (08:53)
[2018-11-22] MEDS: LISINOPRIL 5 MG TAB PO (08:54)
[2018-11-22] MEDS: BALSAM PERU/CASTOR OIL 60 GM TUBE TOP ×2 (08:54→20:54)
[2018-11-22] MEDS: MONTELUKAST 10 MG TAB PO (20:46)
[2018-11-23] MEDS: PANTOPRAZOLE (EC) 40 MG TAB PO ×2 (06:08→17:29)
[2018-11-23] MEDS: HEPARIN 5,000 UNIT/1 ML VIAL SC ×3 (06:08→21:34)
[2018-11-23] MEDS: ANASTROZOLE 1 MG TAB PO (09:34)
[2018-11-23] MEDS: PAROXETINE 20 MG TAB PO ×2 (09:35→21:31)
[2018-11-23] MEDS: QUETIAPINE 25 MG TAB PO ×2 (09:35→21:31)
[2018-11-23] MEDS: DOCUSATE SODIUM 100 MG CAP PO ×2 (09:35→21:31)
[2018-11-23] MEDS: MEMANTINE 10 MG TAB PO (09:37)
[2018-11-23] MEDS: METOPROLOL (XL) 50 MG TAB PO (09:38)
[2018-11-23] MEDS: LISINOPRIL 5 MG TAB PO (09:39)
[2018-11-23] MEDS: BALSAM PERU/CASTOR OIL 60 GM TUBE TOP ×2 (09:39→21:32)
[2018-11-23] MEDS: MONTELUKAST 10 MG TAB PO (21:31)
[2018-11-24] MEDS: HEPARIN 5,000 UNIT/1 ML VIAL SC ×3 (05:26→22:38)
[2018-11-24] MEDS: PANTOPRAZOLE (EC) 40 MG TAB PO ×2 (06:39→17:14)
[2018-11-24] MEDS: ANASTROZOLE 1 MG TAB PO (09:53)
[2018-11-24] MEDS: DOCUSATE SODIUM 100 MG CAP PO ×2 (09:55→21:22)
[2018-11-24] MEDS: MEMANTINE 10 MG TAB PO (09:56)
[2018-11-24] MEDS: METOPROLOL (XL) 50 MG TAB PO (09:56)
[2018-11-24] MEDS: LISINOPRIL 5 MG TAB PO (09:56)
[2018-11-24] MEDS: PAROXETINE 20 MG TAB PO ×2 (09:56→21:22)
[2018-11-24] MEDS: QUETIAPINE 25 MG TAB PO ×2 (09:56→21:22)
[2018-11-24] MEDS: BALSAM PERU/CASTOR OIL 60 GM TUBE TOP ×2 (09:57→21:26)
[2018-11-24] MEDS: MONTELUKAST 10 MG TAB PO (21:22)
[2018-11-25] MEDS: ACETAMINOPHEN 325 MG TAB PO (05:33)
[2018-11-25] MEDS: HEPARIN 5,000 UNIT/1 ML VIAL SC ×3 (05:39→22:01)
[2018-11-25] MEDS: MEMANTINE 10 MG TAB PO (09:07)
[2018-11-25] MEDS: LISINOPRIL 5 MG TAB PO (09:08)
[2018-11-25] MEDS: METOPROLOL (XL) 50 MG TAB PO (09:08)
[2018-11-25] MEDS: DOCUSATE SODIUM 100 MG CAP PO ×2 (09:08→21:28)
[2018-11-25] MEDS: PANTOPRAZOLE (EC) 40 MG TAB PO ×2 (09:08→16:54)
[2018-11-25] MEDS: QUETIAPINE 25 MG TAB PO ×2 (09:09→21:29)
[2018-11-25] MEDS: PAROXETINE 20 MG TAB PO ×2 (09:09→21:29)
[2018-11-25] MEDS: BALSAM PERU/CASTOR OIL 60 GM TUBE TOP ×2 (09:10→21:30)
[2018-11-25] MEDS: ANASTROZOLE 1 MG TAB PO (09:10)
[2018-11-25] MEDS: MONTELUKAST 10 MG TAB PO (21:29)
[2018-11-26] MEDS: HEPARIN 5,000 UNIT/1 ML VIAL SC ×3 (05:35→21:04)
[2018-11-26] MEDS: PANTOPRAZOLE (EC) 40 MG TAB PO ×2 (08:22→18:34)
[2018-11-26] MEDS: DOCUSATE SODIUM 100 MG CAP PO ×2 (08:22→20:53)
[2018-11-26] MEDS: QUETIAPINE 25 MG TAB PO ×2 (08:24→20:53)
[2018-11-26] MEDS: MEMANTINE 10 MG TAB PO (08:24)
[2018-11-26] MEDS: ANASTROZOLE 1 MG TAB PO (08:25)
[2018-11-26] MEDS: PAROXETINE 20 MG TAB PO ×2 (08:26→20:53)
[2018-11-26] MEDS: METOPROLOL (XL) 50 MG TAB PO (08:27)
[2018-11-26] MEDS: LISINOPRIL 5 MG TAB PO (08:28)
[2018-11-26] MEDS: BALSAM PERU/CASTOR OIL 60 GM TUBE TOP ×2 (08:29→20:52)
[2018-11-26] MEDS: MONTELUKAST 10 MG TAB PO (20:53)
[2018-11-26] MEDS: ACETAMINOPHEN 325 MG TAB PO (21:11)
[2018-11-27] MEDS: PANTOPRAZOLE (EC) 40 MG TAB PO ×2 (06:07→16:46)
[2018-11-27] MEDS: HEPARIN 5,000 UNIT/1 ML VIAL SC ×3 (06:07→21:36)
[2018-11-27] MEDS: QUETIAPINE 25 MG TAB PO ×2 (08:22→21:33)
[2018-11-27] MEDS: LISINOPRIL 5 MG TAB PO (08:22)
[2018-11-27] MEDS: ANASTROZOLE 1 MG TAB PO (08:23)
[2018-11-27] MEDS: PAROXETINE 20 MG TAB PO ×2 (08:23→21:33)
[2018-11-27] MEDS: MEMANTINE 10 MG TAB PO (08:23)
[2018-11-27] MEDS: DOCUSATE SODIUM 100 MG CAP PO ×2 (08:24→21:33)
[2018-11-27] MEDS: METOPROLOL (XL) 50 MG TAB PO (08:24)
[2018-11-27] MEDS: BALSAM PERU/CASTOR OIL 60 GM TUBE TOP ×2 (08:24→21:34)
[2018-11-27] MEDS: MONTELUKAST 10 MG TAB PO (21:33)
[2018-11-27] MEDS: ACETAMINOPHEN 325 MG TAB PO (21:37)
[2018-11-28] MEDS: PANTOPRAZOLE (EC) 40 MG TAB PO ×2 (05:24→18:42)
[2018-11-28] MEDS: HEPARIN 5,000 UNIT/1 ML VIAL SC ×3 (05:24→21:36)
[2018-11-28] MEDS: ACETAMINOPHEN 325 MG TAB PO (05:26)
[2018-11-28] MEDS: DOCUSATE SODIUM 100 MG CAP PO ×2 (08:35→21:18)
[2018-11-28] MEDS: QUETIAPINE 25 MG TAB PO ×2 (08:35→21:18)
[2018-11-28] MEDS: ANASTROZOLE 1 MG TAB PO (08:35)
[2018-11-28] MEDS: MEMANTINE 10 MG TAB PO (08:35)
[2018-11-28] MEDS: PAROXETINE 20 MG TAB PO ×2 (08:35→21:18)
[2018-11-28] MEDS: METOPROLOL (XL) 50 MG TAB PO (08:35)
[2018-11-28] MEDS: LISINOPRIL 5 MG TAB PO (08:36)
[2018-11-28] MEDS: BALSAM PERU/CASTOR OIL 60 GM TUBE TOP ×2 (08:37→21:19)
[2018-11-28] MEDS: MONTELUKAST 10 MG TAB PO (21:18)
[2018-11-29] MEDS: HEPARIN 5,000 UNIT/1 ML VIAL SC (05:41)
[2018-11-29] MEDS: PANTOPRAZOLE (EC) 40 MG TAB PO (06:29)
[2018-11-29] MEDS: ACETAMINOPHEN 325 MG TAB PO (08:37)
[2018-11-29] MEDS: LISINOPRIL 5 MG TAB PO (08:38)
[2018-11-29] MEDS: PAROXETINE 20 MG TAB PO (08:38)
[2018-11-29] MEDS: MEMANTINE 10 MG TAB PO (08:39)
[2018-11-29] MEDS: METOPROLOL (XL) 50 MG TAB PO (08:39)
[2018-11-29] MEDS: ANASTROZOLE 1 MG TAB PO (08:39)
[2018-11-29] MEDS: QUETIAPINE 25 MG TAB PO (08:39)
[2018-11-29] MEDS: DOCUSATE SODIUM 100 MG CAP PO (08:40)
[2018-11-29] MEDS: BALSAM PERU/CASTOR OIL 60 GM TUBE TOP (08:40)
[2018-11-30] MEDS ORDERED: ENOXAPARIN 40 MG/0.4 ML SYG SC (09:00)
== END 2018-11-29 18:20 | DRG 871 ==
LOC: E/R 16:38 → PP2 19:47
DX: A41.9 Sepsis, unspecified organism (principal); I50.23 Acute on chronic systolic (congestive) heart failure; J96.01 Acute respiratory failure with hypoxia; N39.0 Urinary tract infection, site not specified; I42.9 Cardiomyopathy, unspecified; J45.901 Unspecified asthma with (acute) exacerbation; E44.0 Moderate protein-calorie malnutrition; C78.00 Secondary malignant neoplasm of unspecified lung; F20.0 Paranoid schizophrenia; C50.919 Malignant neoplasm of unspecified site of unspecified female breast; F03.90 Unspecified dementia, unspecified severity, without behavioral disturbance, psychotic disturbance, mood disturbance, and anxiety; J44.9 Chronic obstructive pulmonary disease, unspecified; R62.7 Adult failure to thrive; Z68.29 Body mass index [BMI] 29.0-29.9, adult; D64.9 Anemia, unspecified; R73.03 Prediabetes; B96.5 Pseudomonas (aeruginosa) (mallei) (pseudomallei) as the cause of diseases classified elsewhere
CPT/HCPCS: 36415; 71045; 72192; 73060-RT; 73550; 80048; 80053; 81001; 81003; 82150; 82962; 83036; 83605; 83690; 83735; 83880; 84100; 84484; 85025; 85610; 85730; 87040; 87081; 87086; 93005; 94664; 96374; 96375; 97110; 97162; 97530; 99285-25; G0378